=== PATIENT | female | born 1985 | race American Indian/Alaskan Native ===

== ENCOUNTER 2018-05-16 12:24 | Inpatient (IN) | payer MEDICAID ==
[2018-05-16] MEDS ORDERED: MYLICON PO PRN (12:56)
[2018-05-16] MEDS ORDERED: SENOKOT S PO PRN (12:56)
[2018-05-16] MEDS ORDERED: COLACE PO PRN (12:56)
[2018-05-16] MEDS ORDERED: ZOFRAN IV PRN (12:56)
[2018-05-16] MEDS ORDERED: D5LR 1,000 ML IV SCH (13:00)
[2018-05-16] MEDS ORDERED: MAGNESIUM SULFATE 4GM/100ML 4 GM/100 ML BAG IV ONE (13:09)
--- NOTE | 2018-05-16 13:16 | History and Physical Report ---
History of Present Illness Date of examination: 05/16/18 Date of admission: 05/16/18 12:43 Chief complaint: Ruptured membranes at 27 weeks History of present illness: 32-year-old 032 at 27 weeks with Di Di twins, she is a [facility] patient. Essential history, patient with Di Di twins being managed by a [facility] and [facility]. course complicated by suspected IUGR of twin A, she has a history of GDM with her prior results negative for this . Was seen in the hospital on Tuesday with question of rupture, ruled out for rupture by CNM and sent home. Patient returned to clinic today with c/o gross rupture, was examined and ROM confirmed per clinic CNM (December). She is sent here for further care. She has no fever or chills, no vaginal discharge or VB, no abdominal tenderness +FM Past History Past Medical History: no pertinent history Past Surgical History: HELP DESK MANAGER/uterine surgery (status post salpingectomy for ectopic ?laparoscopic) HELP DESK MANAGER History: denies: chlamydia, gonorrhea, hepatitis B, hepatitis C, herpes, HIV , syphilis, trichomonas Social history: single, full code. denies: Lives alone, lives with family, smoking, alcohol abuse, prescription drug abuse - Obstetrical History Expected Date of Delivery: 08/15/18 Actual Gestation: 27 Week(s) 0 Day(s) : 6 Para: 2 Medications and Allergies Allergies Allergy/AdvReac Type Severity Reaction Status Date / Time aspirin Allergy Vomiting Verified 06/11/14 08:12 Home Medications Medication Instructions Recorded Confirmed Last Taken Type No Known Home Medications [No 05/13/18 05/13/18 Unknown History Reported Home Medications] Active Meds: Active Medications Acetaminophen (Tylenol) 650 mg PO Q4H PRN PRN Reason: Pain MILD(1-3)/Fever >100.5/ORTEGA Amoxicillin (Trimox) 250 mg PO Q8HR ARNOL; Protocol Stop: 05/23/18 13:04 Betamethasone Acet/Betameth SodPhos (Celestone Soluspan) 12 mg IM Q24HR ARNOL Stop: 05/17/18 10:01 Docusate Sodium (Colace) 100 mg PO Q12H PRN PRN Reason: Constipation Guaifenesin (Guaifenesin Dm Syrup) 10 ml PO Q6H PRN PRN Reason: Cough Ampicillin Sodium (Polycillin/Ns 2 Gm/100 Ml) 2 gm in 100 mls @ 100 mls/hr IV Q6HR [facility]; Protocol Stop: 05/18/18 06:59 Dextrose/Lactated Ringer's (D5lr) 1,000 mls @ 125 mls/hr IV DIRECT ARNOL Multivitamins/Iron/Calcium ( Vitamin) 1 each PO QDAY ARNOL Ondansetron HCl (Zofran) 4 mg IV Q6H PRN PRN Reason: Nausea And Vomiting Senna/Docusate Sodium (Senokot S) 2 tab PO Q12H PRN PRN Reason: Laxative Effect Simethicone (Mylicon) 80 mg PO Q6H PRN PRN Reason: Gas pain Review of Systems Constitutional: no fever, no chills, no weakness, no malaise Cardiovascular: no chest pain, no syncope, no lightheadedness, no shortness of breath, no dyspnea on exertion, no paroxysmal nocturnal dyspnea Respiratory: no cough, no cough with sputum, no shortness of breath, no dyspnea on exertion Gastrointestinal: no abdominal pain, no nausea, no vomiting Genitourinary: leakage of fluid, no vaginal bleeding, no vaginal discharge, no contractions - Physical Exam Cardiovascular: Regular rate, Normal S1, Normal S2 Lungs: Positive: Clear to auscultation, Normal air movement Abdomen: Positive: normal appearance, soft. Negative: distention, tenderness, guarding, rigidity Uterus: Positive: enlarged. Negative: tender Extremities: Positive: normal Results All other labs normal. Assessment and Plan A: 32-year-old at 27 weeks Di Di Twins with ruptured membranes -No contractions P: -Admit -Start latency antibiotics -Start magnesium per protocol -Celestone course -Growth and BPP -MFM consultation -Expectant management - Patient Problems (1) 27 weeks gestation of Current Visit: Yes Status: Acute (2) Dichorionic diamniotic twin in third trimester Current Visit: Yes Status: Acute (3) premature rupture of membranes (PPROM) with unknown onset of labor Current Visit: Yes Status: Acute
[2018-05-16 13:48] LABS: Hematocrit 28.7 % (30.3-42.9); Hemoglobin 9.4 gm/dl (10.1-14.3); Mean Corpuscular HGB Conc 33 % (30-34); Mean Corpuscular Hemoglobin 26 pg (28-32); Mean Corpuscular Volume 81 fl (79-97); Platelet Count 224 K/mm3 (140-440); Red Blood Count 3.56 M/mm3 (3.65-5.03); Red Cell Distribution Width 14.7 % (13.2-15.2)
[2018-05-16 14:27] LABS: BUN/Creatinine Ratio 8; Blood Urea Nitrogen 3 mg/dL (7-17); Calcium 8.8 mg/dL (8.4-10.2); Hemolysis Index 5
[2018-05-16 14:32] LABS: Band Neutrophils # (Manual) 0.4 K/mm3; Basophils % (Manual) 0 % (0.0-1.8); Total Cells Counted 100
[2018-05-16 14:33] LABS: RBC Morphology Normal
[2018-05-16] MEDS: LACTATED RINGERS 1,000 ML IV SCH (15:01)
[2018-05-16] MEDS: POLYCILLIN/NS 2 GM/100 ML 2 GM/100 ML BAG IV SCH ×2 (15:03→21:41)
[2018-05-16] MEDS: CELESTONE SOLUSPAN IM SCH (15:45)
[2018-05-16] MEDS: MAGNESIUM SULFATE 40GM/1000ML 40 GM/1,000 ML BAG IV SCH (15:51)
--- NOTE | 2018-05-16 16:38 | Ultrasound Report ---
FINAL REPORT EXAM: US OB BPP EA ADD EXAM HISTORY: 27 WK TWINS; PROM TECHNIQUE: Biophysical profile obstetrical ultrasound of TWIN B PRIORS: None. FINDINGS: LMP 11/08/2017 clinical Age: 27 w 0 d LMP EDC 08/15/2018 TWIN B Biophysical profile scoring 2 movement 2 tone 2 breathing 2 fluid 8/8 overall score Presentation: Transverse with the head to the maternal right Activity: Monitored Cardiac motion: 138 BPM using M-mode doppler Amniotic Fluid Volume: Adequate IMPRESSION: Twin intrauterine viable with an approximate age of 27 weeks 0 days. Twin B: Biophysical profile score is 8/8
[2018-05-16] MEDS ORDERED: INDOCIN PO ONE (17:23)
--- NOTE | 2018-05-16 17:33 | Event Note ---
Date: 05/16/18 Called and notified that patient having contractions and worried. Saw patient and her partner, she is uncomfortable with her contractions. Performed a vaginal exam, she is still ~ 4 cm and -4 station. She is on Mag per protocol. Plan is to add Indomethacin 50mg loading then 25 mg Q 6H. Discussed delivery of baby A vaginally then baby B by if unable to convert to cephalic presentation.
--- NOTE | 2018-05-16 20:53 | Consultation ---
History of Present Illness Consult date: 05/16/18 Requesting physician: SAVANA CONWAY Reason for consult: prematurity (PROM of di di 27 week gestation twin Mother) [place] Documentation - Maternal Info Events: Premature Rupture Membrane Maternal Blood Type: O (+) positive RPR/VDRL: Non-reactive Rubella: Immune Amniotic Membrane Rupture Date: 05/16/18 Amniotic Membrane Rupture Time: 15:40 (unknown exact time) - information: Height 5 ft 6 in Medications and Allergies Allergies Allergy/AdvReac Type Severity Reaction Status Date / Time aspirin Allergy Vomiting Verified 06/11/14 08:12 Home Medications Medication Instructions Recorded Confirmed Last Taken Type No Known Home Medications [No 05/13/18 05/13/18 Unknown History Reported Home Medications] Active Meds: Active Medications Acetaminophen (Tylenol) 650 mg PO Q4H PRN PRN Reason: Pain MILD(1-3)/Fever >100.5/ORTEGA Amoxicillin (Trimox) 250 mg PO Q8HR ARNOL; Protocol Stop: 05/23/18 13:04 Betamethasone Acet/Betameth SodPhos (Celestone Soluspan) 12 mg IM Q24HR ARNOL Stop: 05/17/18 10:01 Last Admin: 05/16/18 15:45 Dose: 12 mg Docusate Sodium (Colace) 100 mg PO Q12H PRN PRN Reason: Constipation Guaifenesin (Guaifenesin Dm Syrup) 10 ml PO Q6H PRN PRN Reason: Cough Ampicillin Sodium (Polycillin/Ns 2 Gm/100 Ml) 2 gm in 100 mls @ 100 mls/hr IV Q6HR ARNOL; Protocol Stop: 05/18/18 06:59 Last Admin: 05/16/18 15:03 Dose: 100 mls/hr Dextrose/Lactated Ringer's (D5lr) 1,000 mls @ 125 mls/hr IV DIRECT ARNOL Lactated Ringer's (Lactated Ringers) 1,000 mls @ 125 mls/hr IV DIRECT ARNOL Last Admin: 05/16/18 15:01 Dose: 125 mls/hr Magnesium Sulfate (Magnesium Sulfate 40gm/1000ml) 40 gm in 1,000 mls @ 50 mls/ hr IV DIRECT ARNOL Last Admin: 05/16/18 15:51 Dose: 2 gm/hr, 50 mls/hr Indomethacin (Indocin) 25 mg PO Q6H ARNOL Stop: 05/18/18 19:59 Multivitamins/Iron/Calcium ( Vitamin) 1 each PO QDAY ARNOL Ondansetron HCl (Zofran) 4 mg IV Q6H PRN PRN Reason: Nausea And Vomiting Senna/Docusate Sodium (Senokot S) 2 tab PO Q12H PRN PRN Reason: Laxative Effect Simethicone (Mylicon) 80 mg PO Q6H PRN PRN Reason: Gas pain Exam Vital Signs Temp Pulse Resp BP Pulse Ox 99.0 F 110 H 16 118/62 95 05/16/18 13:14 05/16/18 13:14 05/16/18 13:14 05/16/18 13:14 05/16/18 13:14 Temp Pulse Resp BP Pulse Ox 99.3 F 107 H 16 124/74 98 05/16/18 16:46 05/16/18 20:40 05/16/18 13:14 05/16/18 20:40 05/16/18 20:30 Results - Laboratory Findings 05/16/18 13:31 05/16/18 13:31 Abnormal lab results 05/16/18 05/16/18 Range/Units 13:31 13:31 RBC 3.56 L (3.65-5.03) M/mm3 Hgb 9.4 L (10.1-14.3) gm/dl Hct 28.7 L (30.3-42.9) % MCH 26 L (28-32) pg Seg Neuts % (Manual) 75.0 H (40.0-70.0) % Sodium 134 L (137-145) mmol/L Potassium 3.4 L (3.6-5.0) mmol/L Carbon Dioxide 20 L (22-30) mmol/L BUN 3 L (7-17) mg/dL Creatinine 0.4 L (0.7-1.2) mg/dL Glucose 161 H (65-100) mg/dL Assessment and Plan Mother antepartum with di-di twins, currently on MgSO4 drip and antibiotics. Received first dose of Betamethasone this afternoon. Discussed with Mother and FOBs common medical issues of newborns born prior to 32 weeks. Discussed CPAP and possibility of surfactant administration as well as intubation. Discussed need for IV access via UAC/UVC for fluid administration/ nutrition. Mother desires to breastfeed. Discussed slow administration of feedings and reasons for slow advancment, discussed need for CUS @ 7 days of age as well as f/u when and why it would be needed as well as eye eaxams @30 days of age and when and why f/u exams will be needed. Finally, discussed means of thermoregulation and procress to weaning from isolette to open crib. Discussed extended hospital stay while newborns gain weight, mature and improve respiratory status. Parents questions answered and they voiced understanding. Parents appropiate in their level of concern for their future newborns.
--- NOTE | 2018-05-16 21:32 | Ultrasound Report ---
FINAL REPORT EXAM: US OB BPP WO NON-STRESS HISTORY: 27 wk twins with PPROM TECHNIQUE: Biophysical profile obstetrical ultrasound for TWIN A PRIORS: None. FINDINGS: clinical Age: 27 w 0 d TWIN A Biophysical profile scoring 2 movement 2 tone 2 breathing 0 fluid 6/8 overall score Cardiac motion: 158 BPM using M-mode doppler Amniotic Fluid Volume: Decreased Largest Pocket amniotic fluid volume: 1.3 cm IMPRESSION: Twin intrauterine viable with an approximate age of 27 weeks 0 days. TWIN A biophysical profile score is 6/8. Decreased amniotic fluid volume.
--- NOTE | 2018-05-16 21:45 | Ultrasound Report ---
FINAL REPORT EXAM: US OB FOLLOW UP HISTORY: Di Di twinspls obtain growth TECHNIQUE: Limited obstetrical ultrasound for TWIN A PRIORS: None. FINDINGS: LMP: 11/08/2017 clinical Age: 27 w 0 d US Age (average) = 26 w 5 d EFW (BPD,HC,AC,FL) = 949 g +/- 140 g (2 lbs 1 oz. +/- 5 oz.) LMP EDC 08/15/2018 US EDC 08/17/2018 CI 81.2 (range 74 to 83.0) HC/AC 1.14 (range 1.05 to 1.22) FL/BPD 76.6 (range 70.4 to 86.4) FL/HC 20.5 (range 16.8 To 22.2) FL/AC 23.4 (range 20.0 to 24.0) BPD 6.59 cm corresponding to estimated age 26 weeks 4 days HC 24.6 cm corresponding to estimated age 26 weeks 5 days AC 21.6 cm corresponding to estimated age 26 weeks 1 day FL 5.1 cm corresponding to estimated age 27 weeks 1 day Presentation: Cephalic Activity: Monitored Cardiac motion: 144 BPM using M-mode doppler Amniotic Fluid Volume: Decreased largest vertical pocket of amniotic Fluid: 1.3 cm (2-8 cm normal) IMPRESSION: Twin intrauterine viable with an approximate age of 26 weeks 5 days. Amniotic fluid volume is decreased for TWIN A.
--- NOTE | 2018-05-16 21:52 | Ultrasound Report ---
FINAL REPORT EXAM: US OB FOLLOWUP EA ADD GESTAT HISTORY: Obtain JOHN TECHNIQUE: limited obstetrical ultrasound for TWIN B PRIORS: None. FINDINGS: LMP: 11/08/2017 clinical age: 27 w 0 d US Age (average) = 26 w 4 d EFW (BPD,HC,AC,FL) = 953 g +/- 141g (2 lbs 2 oz. +/- 5 oz.) LMP EDC 08/15/2018 US EDC 08/18/2018 CI 83.8 (range 74 to 83) HC/AC 1.09 (range 1.05 to 1.22) FL/BPD 72.6 (range 70.4 to 86.4) FL/HC 19.8 (range 16.8 to 22.2) FL/AC 21.6 (range 20 to 24) BPD 6.7 cm corresponding to estimated age 26 weeks 6 days HC 24.4 cm corresponding to estimated age 26 weeks 3 days AC 22.4 cm corresponding to estimated age 26 weeks 6 days FL 4.8 cm corresponding to estimated age 26 weeks 1 day Presentation: Transverse with the head to the maternal right Activity: Monitored Cardiac motion: 138 BPM using M-mode doppler Amniotic Fluid Volume: Adequate Amniotic fluid single largest vertical pocket 4.4 cm (2-8 cm normal) IMPRESSION: Twin intrauterine viable with an approximate age of 26 weeks 4 days. Findings are for TWIN B. Amniotic fluid volume is normal for twin B.
[2018-05-17] MEDS: INDOCIN PO SCH ×4 (01:09→19:41)
[2018-05-17] MEDS: TYLENOL PO PRN ×3 (02:53→19:49)
[2018-05-17] MEDS: POLYCILLIN/NS 2 GM/100 ML 2 GM/100 ML BAG IV SCH ×4 (03:07→19:40)
[2018-05-17] MEDS ORDERED: ZITHROMAX PO ONE (05:10)
--- NOTE | 2018-05-17 06:12 | Event Note ---
Date: 05/17/18 Called and notified patient having intermittent decels with latish component. On reviewing the chart, patient currently not having latish decels. Still having intermittent decels. Patient no fever or chills. No VB +FM +LOF. Contractions have reduced in frequency, was previoulsy 09/12. ABD exam shows no tenderness Sterile speculum exam shows cervix still ~ 3-4 cm, no cord or caput noted. Plan is BPP now
--- NOTE | 2018-05-17 07:08 | Ultrasound Report ---
FINAL REPORT EXAM: US OB LIMITED HISTORY: position twins TECHNIQUE: A limited OB sonogram was obtained for evaluation of the position of the twin . FINDINGS: Baby a is in cephalic presentation with the heart rate of 139 BPM. The largest amniotic fluid pocket is 3.1 cm. Baby B is in breech presentation. The heart is 147 BPM. The largest amniotic fluid pocket is 5.1 cm which is normal. IMPRESSION: Twin , baby a is in cephalic presentation with baby B in breech presentation.
--- NOTE | 2018-05-17 07:10 | Ultrasound Report ---
FINAL REPORT EXAM: US OB BPP EA ADD EXAM HISTORY: labor, srom TECHNIQUE: A limited OB sonogram was obtained for biophysical profile of baby a: FINDINGS: For breathing movements, a score of 2 out of 2 was obtained. For movements, a score of 2 out of 2 was obtained. For posture in tone, a score of 2 out of 2 was obtained. For qualitative amniotic fluid volume, a score of 2 out of 2 was obtained. The heart rate is 139 BPM. IMPRESSION: Biophysical profile score of 8 out of 8 for baby a. the heart rate is 139 BPM.
--- NOTE | 2018-05-17 09:31 | Progress Note ---
Assessment and Plan - Patient Problems (1) 27 weeks gestation of Current Visit: Yes Status: Acute (2) Dichorionic diamniotic twin in third trimester Current Visit: Yes Status: Acute (3) premature rupture of membranes (PPROM) with unknown onset of labor Current Visit: Yes Status: Acute Plan to address problem: Continue current management. Awaiting APA consult. Continous and toco monitoring. (4) Anemia Current Visit: Yes Status: Acute Qualifiers: Anemia type: iron deficiency Subjective - Subjective Date of service: 05/17/18 Principal diagnosis: Twins gestation at 27 weeks with PPOM Interval history: Patient is a 32 year old , LMP 11/08/17, EDC 08/15/18 at 27 weeks and 1 day gestation who was admitted yesterday after she went to the office for a routine visit. She reported that she had been leaking fluids for 4 days. She denied any contractions or bleeding. She did not go to the hospital to get checked. On exam in the office, there was pooling of clear fluid, cervix was 3-4 cm dilated. She was sent in for admission. tracing was CAT1, toco showed no contractions. She was given magnesium sulfate for tocolysis and neuroprotection, Celestone for FLM, IV antibiotics prophylaxis. Bedside sonogram showed baby A to be VTX, EFW 949 gms, normal JOHN and baby B to be breech, EFW 953 gms, normal JOHN. BPP was 8/8 for both babies. NICU consult was done. APA consult was called. This AM, she denies any complaint. Objective - Vital Signs Vital Signs: Vital Signs - 12hr 05/16/18 05/16/18 05/16/18 21:45 22:46 22:57 Temperature Pulse Rate 94 H 93 H 108 H Respiratory Rate Blood Pressure 119/56 100/60 Blood Pressure [Right] O2 Sat by Pulse 94 Oximetry 05/16/18 05/16/18 05/16/18 22:58 23:03 23:08 Temperature Pulse Rate 98 H 97 H 95 H Respiratory Rate Blood Pressure Blood Pressure [Right] O2 Sat by Pulse 97 100 99 Oximetry 05/16/18 05/16/18 05/16/18 23:13 23:18 23:23 Temperature Pulse Rate 103 H 103 H 106 H Respiratory Rate Blood Pressure Blood Pressure [Right] O2 Sat by Pulse 100 100 100 Oximetry 05/16/18 05/16/18 05/16/18 23:28 23:33 23:38 Temperature Pulse Rate 103 H 99 H 107 H Respiratory Rate Blood Pressure Blood Pressure [Right] O2 Sat by Pulse 96 97 98 Oximetry 05/16/18 05/16/18 05/16/18 23:44 23:45 23:49 Temperature 98.8 F Pulse Rate 98 H 96 H 98 H Respiratory 18 Rate Blood Pressure 122/54 Blood Pressure 122/54 [Right] O2 Sat by Pulse 80 L 96 Oximetry 05/17/18 05/17/18 05/17/18 01:45 04:45 07:45 Temperature 98.0 F 97.8 F Pulse Rate 85 100 H Respiratory 18 Rate Blood Pressure 110/60 Blood Pressure 110/56 [Right] O2 Sat by Pulse Oximetry 05/17/18 05/17/18 05/17/18 08:06 08:07 08:12 Temperature Pulse Rate 59 L 49 L 95 H Respiratory Rate Blood Pressure Blood Pressure [Right] O2 Sat by Pulse 93 96 98 Oximetry 05/17/18 05/17/18 05/17/18 08:17 08:22 08:27 Temperature Pulse Rate 95 H 90 91 H Respiratory Rate Blood Pressure Blood Pressure [Right] O2 Sat by Pulse 98 97 97 Oximetry 05/17/18 05/17/18 05/17/18 08:32 08:37 08:42 Temperature Pulse Rate 94 H 105 H 90 Respiratory Rate Blood Pressure Blood Pressure [Right] O2 Sat by Pulse 96 98 97 Oximetry 05/17/18 05/17/18 05/17/18 08:43 08:45 08:47 Temperature Pulse Rate 91 H 90 100 H Respiratory Rate Blood Pressure 107/68 Blood Pressure [Right] O2 Sat by Pulse 94 97 Oximetry 05/17/18 05/17/18 05/17/18 08:52 08:57 09:02 Temperature Pulse Rate 99 H 91 H 101 H Respiratory Rate Blood Pressure Blood Pressure [Right] O2 Sat by Pulse 96 98 98 Oximetry 05/17/18 05/17/18 05/17/18 09:07 09:12 09:17 Temperature Pulse Rate 90 97 H 89 Respiratory Rate Blood Pressure Blood Pressure [Right] O2 Sat by Pulse 99 100 100 Oximetry 05/17/18 09:22 Temperature Pulse Rate 94 H Respiratory Rate Blood Pressure Blood Pressure [Right] O2 Sat by Pulse 100 Oximetry - Exam Cardiovascular: Normal S1, Normal S2 Lungs: Clear to auscultation Vulva: both: normal FHR: category 1 Uterine Contraction Monitor Mode: External Cervical Dilatation: 3 Cervical Effacement Percentage: 50 Uterine Contraction Pattern: Absent Deep Tendon Reflex Grade: Normal +2 - Labs Labs: Abnormal Labs 05/16/18 05/16/18 05/16/18 13:31 13:31 21:41 RBC 3.56 L Hgb 9.4 L Hct 28.7 L MCH 26 L Seg Neuts % (Manual) 75.0 H Sodium 134 L Potassium 3.4 L Carbon Dioxide 20 L BUN 3 L Creatinine 0.4 L Glucose 161 H Magnesium 4.30 H 05/17/18 02:34 RBC Hgb Hct MCH Seg Neuts % (Manual) Sodium Potassium Carbon Dioxide BUN Creatinine Glucose Magnesium 2.90 H Laboratory Results - last 24 hr 05/16/18 05/16/18 05/16/18 13:31 13:31 13:31 WBC 9.2 RBC 3.56 L Hgb 9.4 L Hct 28.7 L MCV 81 MCH 26 L MCHC 33 RDW 14.7 Plt Count 224 Add Manual Diff Complete Total Counted 100 Seg Neuts % (Manual) 75.0 H Band Neutrophils % 4.0 Lymphocytes % (Manual) 17.0 Reactive Lymphs % (Man) 0 Monocytes % (Manual) 1.0 Eosinophils % (Manual) 2.0 Basophils % (Manual) 0 Metamyelocytes % 1.0 Myelocytes % 0 Promyelocytes % 0 Blast Cells % 0 Nucleated RBC % Not Reportable Seg Neutrophils # Man 6.9 Band Neutrophils # 0.4 Lymphocytes # (Manual) 1.6 Abs React Lymphs (Man) 0.0 Monocytes # (Manual) 0.1 Eosinophils # (Manual) 0.2 Basophils # (Manual) 0.0 Metamyelocytes # 0.1 Myelocytes # 0.0 Promyelocytes # 0.0 Blast Cells # 0.0 WBC Morphology Not Reportable Hypersegmented Neuts Not Reportable Hyposegmented Neuts Not Reportable Hypogranular Neuts Not Reportable Smudge Cells Not Reportable Toxic Granulation Not Reportable Toxic Vacuolation Not Reportable Dohle Bodies Not Reportable Pelger-Huet Anomaly Not Reportable Pillo Rods Not Reportable Platelet Estimate Appears normal Clumped Platelets Not Reportable Plt Clumps, EDTA Not Reportable Large Platelets Not Reportable Giant Platelets Not Reportable Platelet Satelliting Not Reportable Plt Morphology Comment Not Reportable RBC Morphology Normal Dimorphic RBCs Not Reportable Polychromasia Not Reportable Hypochromasia Not Reportable Poikilocytosis Not Reportable Anisocytosis Not Reportable Microcytosis Not Reportable Macrocytosis Not Reportable Spherocytes Not Reportable Pappenheimer Bodies Not Reportable Sickle Cells Not Reportable Target Cells Not Reportable Tear Drop Cells Not Reportable Ovalocytes Not Reportable Helmet Cells Not Reportable [place] Bodies Not Reportable [place] Rings Not Reportable [place] Cells Not Reportable Bite Cells Not Reportable Crenated Cell Not Reportable Elliptocytes Not Reportable Acanthocytes (Spur) Not Reportable Rouleaux Not Reportable Hemoglobin C Crystals Not Reportable Schistocytes Not Reportable Malaria parasites Not Reportable Jl Bodies Not Reportable Hem Pathologist Commnt No Sodium 134 L Potassium 3.4 L Chloride 101.5 Carbon Dioxide 20 L Anion Gap 16 BUN 3 L Creatinine 0.4 L Estimated GFR > 60 BUN/Creatinine Ratio 8 Glucose 161 H Calcium 8.8 Magnesium Blood Type O POSITIVE Antibody Screen Negative 05/16/18 05/17/18 21:41 02:34 WBC RBC Hgb Hct MCV MCH MCHC RDW Plt Count Add Manual Diff Total Counted Seg Neuts % (Manual) Band Neutrophils % Lymphocytes % (Manual) Reactive Lymphs % (Man) Monocytes % (Manual) Eosinophils % (Manual) Basophils % (Manual) Metamyelocytes % Myelocytes % Promyelocytes % Blast Cells % Nucleated RBC % Seg Neutrophils # Man Band Neutrophils # Lymphocytes # (Manual) Abs React Lymphs (Man) Monocytes # (Manual) Eosinophils # (Manual) Basophils # (Manual) Metamyelocytes # Myelocytes # Promyelocytes # Blast Cells # WBC Morphology Hypersegmented Neuts Hyposegmented Neuts Hypogranular Neuts Smudge Cells Toxic Granulation Toxic Vacuolation Dohle Bodies Pelger-Huet Anomaly [place]illo Rods Platelet Estimate Clumped Platelets Plt Clumps, EDTA Large Platelets Giant Platelets Platelet Satelliting Plt Morphology Comment RBC Morphology Dimorphic RBCs Polychromasia Hypochromasia Poikilocytosis Anisocytosis Microcytosis Macrocytosis Spherocytes Pappenheimer Bodies Sickle Cells Target Cells Tear Drop Cells Ovalocytes Helmet Cells [place] Bodies [place] Cells Bite Cells Crenated Cell Elliptocytes Acanthocytes (Spur) Rouleaux Hemoglobin C Crystals Schistocytes Malaria parasites Jl Bodies Hem Pathologist Commnt Sodium Potassium Chloride Carbon Dioxide Anion Gap BUN Creatinine Estimated GFR BUN/Creatinine Ratio Glucose Calcium Magnesium 4.30 H 2.90 H Blood Type Antibody Screen - Results US- obstetric: report reviewed
[2018-05-17] MEDS: PRENATAL VITAMIN PO SCH (10:07)
--- NOTE | 2018-05-17 10:21 | Ultrasound Report ---
FINAL REPORT EXAM: US OB BPP WO NON-STRESS HISTORY: labor, srom COMPARISON: Biophysical profile performed on 05/16/2018 TECHNIQUE: Limited obstetric ultrasound was performed for biophysical profile of baby a FINDINGS: Biophysical profile: breathin movement: 2 posterior and tone: 2 Amniotic Fluid: 2 Total score: 8 heart rate: 139 IMPRESSION: Normal biophysical profile.
--- NOTE | 2018-05-17 14:24 | Event Note ---
Date: 05/17/18 Patient was admitted yesterday at 27 weeks and 1 days for PPROM with Di/Di twins gestation. She is on Magnesium sulfate, IV antibiotics, and celestone first dose was given last night. She denies any contractions or bleeding. GCT was done yesterday and was 211 consistent with showed gestational diabetes. Patient was made aware. Will put patient on ADA diet, initiate FS and sliding scale.
[2018-05-17] MEDS: CELESTONE SOLUSPAN IM SCH (15:48)
[2018-05-17] MEDS: MAGNESIUM SULFATE 40GM/1000ML 40 GM/1,000 ML BAG IV SCH (16:56)
[2018-05-17] MEDS: LACTATED RINGERS 1,000 ML IV SCH (16:57)
[2018-05-17] MEDS ORDERED: D50W (25GM) Syringe IV PRN (19:58)
[2018-05-17] MEDS ORDERED: HumuLIN R SUB-Q SCH (22:00)
[2018-05-18] MEDS: POLYCILLIN/NS 2 GM/100 ML 2 GM/100 ML BAG IV SCH ×2 (01:03→07:48)
[2018-05-18] MEDS: INDOCIN PO SCH ×4 (01:05→20:05)
--- NOTE | 2018-05-18 07:07 | Ultrasound Report ---
FINAL REPORT EXAM: US OB LIMITED HISTORY: unable to detect twin B FHT TECHNIQUE: A limited OB sonogram was obtained for evaluation of the heart rates of both twins. FINDINGS: For twin a which is in cephalic presentation, the heart rate is 147 BPM. For twin B which is in breech presentation the heart rate is 145 BPM. IMPRESSION: Twin a: heart rate 147 BPM. Twin B: heart rate 145 BPM.
[2018-05-18] MEDS: LACTATED RINGERS 1,000 ML IV SCH ×2 (07:50→22:24)
[2018-05-18] MEDS: TYLENOL PO PRN (08:17)
--- NOTE | 2018-05-18 09:17 | Progress Note ---
Assessment and Plan - Patient Problems (1) 27 weeks gestation of Current Visit: Yes Status: Acute (2) Dichorionic diamniotic twin in third trimester Current Visit: Yes Status: Acute (3) premature rupture of membranes (PPROM) with unknown onset of labor Current Visit: Yes Status: Acute Plan to address problem: Continue current management. Monitor Mg levels. CBC today, then Q48 hrs. BPP today. Awaiting [facility] consult. Continous and toco monitoring. (4) Anemia Current Visit: Yes Status: Acute Qualifiers: Anemia type: iron deficiency Subjective - Subjective Principal diagnosis: Twins gestation at 27 weeks with PPOM Interval history: Patient is a 32 year old , LMP 11/08/17, EDC 08/15/18 at 27 weeks and 2 days gestation who was admitted 2 days ago after she went to the office for a routine visit. She reported that she had been leaking fluids for 4 days. She denied any contractions or bleeding. She did not go to the hospital to get checked. On exam in the office, there was pooling of clear fluid, cervix was 3-4 cm dilated. She was sent in for admission. tracing was CAT1, toco showed no contractions. She is on magnesium sulfate for tocolysis and neuroprotection, Celestone for FLM, IV antibiotics prophylaxis. Bedside sonogram showed baby A to be VTX, EFW 949 gms, normal JOHN and baby B to be breech, EFW 953 gms, normal JOHN. BPP was 8/8 for both babies. NICU consult was done. [facility] consult was called. This AM, she denies any complaint. Objective - Vital Signs Vital Signs: Vital Signs - 12hr 05/17/18 05/17/18 05/17/18 21:15 21:20 21:25 Temperature Pulse Rate 93 H 89 94 H Blood Pressure O2 Sat by Pulse 98 98 98 Oximetry 05/17/18 05/17/18 05/17/18 21:30 21:35 21:40 Temperature Pulse Rate 90 94 H 92 H Blood Pressure O2 Sat by Pulse 99 98 96 Oximetry 05/17/18 05/17/18 05/17/18 21:45 21:46 21:50 Temperature Pulse Rate 93 H 98 H 97 H Blood Pressure 115/64 O2 Sat by Pulse 96 96 Oximetry 05/17/18 05/17/18 05/17/18 21:55 22:00 22:02 Temperature Pulse Rate 96 H 98 H 96 H Blood Pressure O2 Sat by Pulse 96 95 94 Oximetry 05/17/18 05/17/18 05/17/18 22:05 22:10 22:15 Temperature 98.6 F Pulse Rate 95 H 98 H 90 Blood Pressure O2 Sat by Pulse 96 94 97 Oximetry 05/17/18 05/17/18 05/17/18 22:20 22:25 22:30 Temperature Pulse Rate 95 H 96 H 97 H Blood Pressure O2 Sat by Pulse 96 96 96 Oximetry 05/17/18 05/17/18 05/17/18 22:35 22:40 22:45 Temperature Pulse Rate 96 H 100 H 93 H Blood Pressure 95/52 O2 Sat by Pulse 96 96 95 Oximetry 05/17/18 05/17/18 05/17/18 22:48 22:50 22:55 Temperature Pulse Rate 92 H 96 H 98 H Blood Pressure O2 Sat by Pulse 94 96 96 Oximetry 05/17/18 05/17/18 05/17/18 23:00 23:05 23:06 Temperature Pulse Rate 97 H 99 H 95 H Blood Pressure O2 Sat by Pulse 96 96 93 Oximetry 05/17/18 05/17/18 05/17/18 23:10 23:14 23:15 Temperature Pulse Rate 99 H 98 H 99 H Blood Pressure O2 Sat by Pulse 95 93 97 Oximetry 05/17/18 05/17/18 05/17/18 23:20 23:25 23:30 Temperature Pulse Rate 98 H 98 H 96 H Blood Pressure O2 Sat by Pulse 96 96 96 Oximetry 05/17/18 05/17/18 05/17/18 23:35 23:40 23:41 Temperature 96.8 F L Pulse Rate 101 H 110 H Blood Pressure O2 Sat by Pulse 96 98 Oximetry 05/17/18 05/17/18 05/17/18 23:45 23:50 23:55 Temperature Pulse Rate 95 H 106 H 94 H Blood Pressure 117/56 O2 Sat by Pulse 98 97 97 Oximetry 05/18/18 05/18/18 05/18/18 00:00 00:05 00:10 Temperature Pulse Rate 92 H 99 H 93 H Blood Pressure O2 Sat by Pulse 97 96 98 Oximetry 05/18/18 05/18/18 05/18/18 00:15 00:20 00:25 Temperature Pulse Rate 92 H 98 H 96 H Blood Pressure O2 Sat by Pulse 97 98 97 Oximetry 05/18/18 05/18/18 05/18/18 00:30 00:35 00:40 Temperature Pulse Rate 91 H 96 H 101 H Blood Pressure O2 Sat by Pulse 98 98 98 Oximetry 05/18/18 05/18/18 05/18/18 00:45 00:50 00:55 Temperature Pulse Rate 98 H 96 H 98 H Blood Pressure O2 Sat by Pulse 98 97 97 Oximetry 05/18/18 05/18/18 05/18/18 01:00 01:05 01:10 Temperature Pulse Rate 99 H 93 H 115 H Blood Pressure O2 Sat by Pulse 96 97 99 Oximetry 05/18/18 05/18/18 05/18/18 01:15 01:20 01:25 Temperature Pulse Rate 111 H 87 86 Blood Pressure O2 Sat by Pulse 100 100 97 Oximetry 05/18/18 05/18/18 05/18/18 01:30 01:35 01:40 Temperature Pulse Rate 109 H 85 85 Blood Pressure O2 Sat by Pulse 96 99 100 Oximetry 05/18/18 05/18/18 05/18/18 01:45 01:50 01:55 Temperature Pulse Rate 90 88 88 Blood Pressure O2 Sat by Pulse 97 96 97 Oximetry 05/18/18 05/18/18 05/18/18 02:00 02:05 02:10 Temperature Pulse Rate 88 91 H 94 H Blood Pressure O2 Sat by Pulse 97 96 96 Oximetry 05/18/18 05/18/18 05/18/18 02:15 02:17 02:20 Temperature 98.2 F Pulse Rate 91 H 97 H Blood Pressure O2 Sat by Pulse 97 97 Oximetry 05/18/18 05/18/18 05/18/18 02:25 02:30 02:35 Temperature Pulse Rate 93 H 99 H 94 H Blood Pressure O2 Sat by Pulse 97 96 96 Oximetry 05/18/18 05/18/18 05/18/18 02:40 02:45 02:50 Temperature Pulse Rate 96 H 97 H 105 H Blood Pressure O2 Sat by Pulse 96 96 96 Oximetry 05/18/18 05/18/18 05/18/18 02:55 03:00 03:05 Temperature Pulse Rate 98 H 94 H 105 H Blood Pressure O2 Sat by Pulse 97 94 97 Oximetry 05/18/18 05/18/18 05/18/18 03:10 03:15 03:20 Temperature Pulse Rate 94 H 97 H 124 H Blood Pressure O2 Sat by Pulse 97 95 98 Oximetry 05/18/18 05/18/18 05/18/18 03:25 03:30 03:35 Temperature Pulse Rate 101 H 92 H 95 H Blood Pressure O2 Sat by Pulse 98 97 97 Oximetry 05/18/18 05/18/18 05/18/18 03:40 03:45 03:50 Temperature Pulse Rate 98 H 95 H 100 H Blood Pressure O2 Sat by Pulse 97 97 97 Oximetry 05/18/18 05/18/18 05/18/18 03:52 03:55 04:00 Temperature 97.9 F Pulse Rate 90 93 H 104 H Blood Pressure 111/63 O2 Sat by Pulse 95 96 Oximetry 05/18/18 05/18/18 05/18/18 04:05 04:10 04:15 Temperature Pulse Rate 93 H 89 94 H Blood Pressure O2 Sat by Pulse 99 96 97 Oximetry 05/18/18 05/18/18 05/18/18 04:20 04:25 04:30 Temperature Pulse Rate 101 H 99 H 98 H Blood Pressure O2 Sat by Pulse 96 96 96 Oximetry 05/18/18 05/18/18 05/18/18 04:35 04:40 04:43 Temperature Pulse Rate 98 H 101 H 95 H Blood Pressure O2 Sat by Pulse 95 96 94 Oximetry 05/18/18 05/18/18 05/18/18 04:45 04:50 04:55 Temperature Pulse Rate 92 H 94 H 101 H Blood Pressure 111/62 O2 Sat by Pulse 95 95 96 Oximetry 05/18/18 05/18/18 05/18/18 05:00 05:05 05:10 Temperature Pulse Rate 94 H 110 H 93 H Blood Pressure O2 Sat by Pulse 96 98 96 Oximetry 05/18/18 05/18/18 05/18/18 05:15 05:20 05:25 Temperature Pulse Rate 97 H 95 H 91 H Blood Pressure O2 Sat by Pulse 96 96 98 Oximetry 05/18/18 05/18/18 05/18/18 05:30 05:35 05:40 Temperature Pulse Rate 92 H 95 H 96 H Blood Pressure O2 Sat by Pulse 97 97 98 Oximetry 05/18/18 05/18/18 05/18/18 05:45 05:47 05:50 Temperature Pulse Rate 95 H 92 H 96 H Blood Pressure 111/64 O2 Sat by Pulse 96 96 Oximetry 05/18/18 05/18/18 05/18/18 05:55 06:00 06:05 Temperature 97.9 F Pulse Rate 91 H 101 H 90 Blood Pressure O2 Sat by Pulse 99 99 98 Oximetry 05/18/18 05/18/18 05/18/18 06:10 06:15 06:20 Temperature Pulse Rate 92 H 96 H 93 H Blood Pressure O2 Sat by Pulse 97 97 97 Oximetry 05/18/18 05/18/18 05/18/18 06:25 06:30 06:35 Temperature Pulse Rate 95 H 90 103 H Blood Pressure O2 Sat by Pulse 97 96 100 Oximetry 05/18/18 05/18/18 05/18/18 06:40 06:45 06:50 Temperature Pulse Rate 94 H 89 109 H Blood Pressure 117/67 O2 Sat by Pulse 100 99 99 Oximetry 05/18/18 05/18/18 05/18/18 06:55 07:00 07:05 Temperature Pulse Rate 93 H 91 H 92 H Blood Pressure O2 Sat by Pulse 98 98 99 Oximetry 05/18/18 05/18/18 05/18/18 07:10 07:15 07:20 Temperature Pulse Rate 89 96 H 106 H Blood Pressure O2 Sat by Pulse 97 97 99 Oximetry 05/18/18 05/18/18 05/18/18 07:25 07:30 07:35 Temperature Pulse Rate 100 H 97 H 101 H Blood Pressure O2 Sat by Pulse 99 98 98 Oximetry 05/18/18 05/18/18 05/18/18 07:40 07:45 07:50 Temperature Pulse Rate 94 H 92 H 94 H Blood Pressure 109/57 O2 Sat by Pulse 97 97 97 Oximetry 05/18/18 05/18/18 05/18/18 08:02 08:05 08:07 Temperature Pulse Rate 99 H 91 H 99 H Blood Pressure 120/66 O2 Sat by Pulse 97 97 Oximetry 05/18/18 05/18/18 05/18/18 08:12 08:17 08:22 Temperature Pulse Rate 98 H 101 H 101 H Blood Pressure O2 Sat by Pulse 97 95 96 Oximetry 05/18/18 05/18/1818 08:27 08:32 08:37 Temperature Pulse Rate 99 H 92 H 101 H Blood Pressure O2 Sat by Pulse 95 98 98 Oximetry 05/18/18 05/18/18 05/18/18 08:42 08:45 08:47 Temperature Pulse Rate 106 H 97 H 113 H Blood Pressure 119/61 O2 Sat by Pulse 99 97 Oximetry 05/18/18 05/18/18 05/18/18 08:52 08:57 09:02 Temperature Pulse Rate 96 H 102 H 98 H Blood Pressure O2 Sat by Pulse 97 97 98 Oximetry 05/18/18 05/18/18 09:07 09:12 Temperature Pulse Rate 98 H 95 H Blood Pressure O2 Sat by Pulse 98 98 Oximetry - Exam Cardiovascular: Normal S1, Normal S2 Lungs: Clear to auscultation Vulva: both: normal FHR: category 1 Uterine Contraction Monitor Mode: External Uterine Contraction Pattern: Absent Deep Tendon Reflex Grade: Normal +2 - Labs Labs: Abnormal Labs 05/16/18 05/16/18 05/16/18 13:31 13:31 21:41 RBC 3.56 L Hgb 9.4 L Hct 28.7 L MCH 26 L Seg Neuts % (Manual) 75.0 H Sodium 134 L Potassium 3.4 L Carbon Dioxide 20 L BUN 3 L Creatinine 0.4 L Glucose 161 H POC Glucose Magnesium 4.30 H 05/17/18 05/17/18 05/17/18 02:34 12:44 19:57 RBC Hgb Hct MCH Seg Neuts % (Manual) Sodium Potassium Carbon Dioxide BUN Creatinine Glucose POC Glucose 225 H Magnesium 2.90 H 4.70 H 05/18/18 05/18/18 05/18/18 00:10 06:02 07:49 RBC Hgb Hct MCH Seg Neuts % (Manual) Sodium Potassium Carbon Dioxide BUN Creatinine Glucose POC Glucose 141 H Magnesium 4.60 H 4.70 H Laboratory Results - last 24 hr 05/17/18 05/17/18 05/18/18 12:44 19:57 00:10 POC Glucose 225 H Magnesium 4.70 H 4.60 H 05/18/18 05/18/18 06:02 07:49 POC Glucose 141 H Magnesium 4.70 H
[2018-05-18 10:00] LABS: Hematocrit 25.7 % (30.3-42.9); Hemoglobin 8.4 gm/dl (10.1-14.3); Lymphocytes # (Auto) 1.5 K/mm3 (1.2-5.4); Lymphocytes % (Auto) 11.6 % (13.4-35.0); Mean Corpuscular HGB Conc 33 % (30-34); Mean Corpuscular Hemoglobin 26 pg (28-32); Mean Corpuscular Volume 80 fl (79-97); Monocytes # (Auto) 0.8 K/mm3 (0.0-0.8); Monocytes % (Auto) 5.9 % (0.0-7.3); Platelet Count 234 K/mm3 (140-440); Red Blood Count 3.21 M/mm3 (3.65-5.03); Red Cell Distribution Width 14.7 % (13.2-15.2)
--- NOTE | 2018-05-18 10:16 | Ultrasound Report ---
ULTRASOUND BIOPHYSICAL PROFILE: ULTRASOUND BIOPHYSICAL PROFILE ADD EXAM: History: Premature rupture of membranes, twin gestation Technique: Transabdominal ultrasound with Doppler interrogation. Baby A 2 - breathing movements 2 - movements 2 - posture and tone 2 - Qualitative amniotic fluid volume 8 - TOTAL SCORE OF POSSIBLE 8 Heart Rate (bpm) 133 Baby B 2 - breathing movements 2 - movements 2 - posture and tone 2 - Qualitative amniotic fluid volume 8 - TOTAL SCORE OF POSSIBLE 8 Heart Rate (bpm) 149
--- NOTE | 2018-05-18 12:20 | Consultation ---
History of Present Illness Reason for consult: PROM (Patient is a 32 year old , LMP 11/08/17, EDC at 27 weeks and 2 day gestation Followed by [facility] for DI/DI twin gestation , Twin A with IUGR ( last [facility] EFW @ 7% ) , resolved Polyhydramnios for Twin A and Twin B who was admitted 05/16/18 after she went to the office for a routine visit. She reported that she had been leaking fluids for 4 days which was 05/12/18. She denied any contractions or bleeding. She did not go to the hospital to get checked. She presented from [facility] OB office 05/16/18 pooling of clear fluid, cervix was 3-4 cm dilated. She was sent in for admission. tracing was CAT1 for 27 weeks gestation , toco showed no contractions. magnesium sulfate for tocolysis and neuroprotection in progress since 05/16/18 , S/P Celestone for FLM, IV antibiotics prophylaxis. 05/16/18 Bedside sonogram revealed Twin A to be VTX, EFW 949 gms, MVP of 1.3 cm BPP for Twin A 6/8 and Twin B to be breech, EFW 953 gms, normal JOHN. BPP was 8/8 for Twin B.) Past History Past Medical History: no pertinent history Past Surgical History: [employer]/uterine surgery (status post salpingectomy for ectopic ?laparoscopic) [employer] History: denies: chlamydia, gonorrhea, hepatitis B, hepatitis C, herpes, HIV , syphilis, trichomonas - Obstetrical History : 6 Medications and Allergies Allergies Allergy/AdvReac Type Severity Reaction Status Date / Time aspirin Allergy Vomiting Verified 06/11/14 08:12 Home Medications Medication Instructions Recorded Confirmed Last Taken Type No Known Home Medications [No 05/13/18 05/17/18 Unknown History Reported Home Medications] Active Meds: Active Medications Acetaminophen (Tylenol) 650 mg PO Q4H PRN PRN Reason: Pain MILD(1-3)/Fever >100.5/ORTEGA Last Admin: 05/18/18 08:17 Dose: 650 mg Amoxicillin (Trimox) 250 mg PO Q8HR ARNOL; Protocol Stop: 05/23/18 13:04 Azithromycin (Zithromax) 250 mg PO QDAY ARNOL Dextrose (D50w (25gm) Syringe) 50 ml IV PRN PRN PRN Reason: Hypoglycemia Docusate Sodium (Colace) 100 mg PO Q12H PRN PRN Reason: Constipation Guaifenesin (Guaifenesin Dm Syrup) 10 ml PO Q6H PRN PRN Reason: Cough Dextrose/Lactated Ringer's (D5lr) 1,000 mls @ 125 mls/hr IV DIRECT ARNOL Lactated Ringer's (Lactated Ringers) 1,000 mls @ 125 mls/hr IV DIRECT ARNOL Last Admin: 05/18/18 07:50 Dose: 125 mls/hr Magnesium Sulfate (Magnesium Sulfate 40gm/1000ml) 40 gm in 1,000 mls @ 50 mls/ hr IV DIRECT ARNOL Last Admin: 05/17/18 16:56 Dose: 2 gm/hr, 50 mls/hr Indomethacin (Indocin) 25 mg PO Q6H ARNOL Stop: 05/18/18 19:59 Last Admin: 05/18/18 08:11 Dose: 25 mg Insulin Human Regular (Humulin R) 0 units SUB-Q ACHS ARNOL; Protocol Insulin Human Regular (Humulin R) 0 units SUB-Q Q6HR ARNOL; Protocol Multivitamins/Iron/Calcium ( Vitamin) 1 each PO QDAY ARNOL Last Admin: 05/17/18 10:07 Dose: 1 each Ondansetron HCl (Zofran) 4 mg IV Q6H PRN PRN Reason: Nausea And Vomiting Senna/Docusate Sodium (Senokot S) 2 tab PO Q12H PRN PRN Reason: Laxative Effect Simethicone (Mylicon) 80 mg PO Q6H PRN PRN Reason: Gas pain Review of Systems Constitutional: no fever, no chills Eyes: no photophobia Ears, nose, mouth and throat: no headache Cardiovascular: no rapid/irregular heart beat, no edema, no shortness of breath , no high blood pressure Respiratory: no cough, no shortness of breath Breasts: deferred Gastrointestinal: no abdominal pain, no nausea, no vomiting, no indigestion Genitourinary: leakage of fluid (minimal LFO during consultation ), no vaginal bleeding, no vaginal discharge Musculoskeletal: no low back pain Integumentary: no rash, no pruritis Neurological: no numbness, no seizures, no headaches Endocrine: other (History of GDM. Recent dx of GDM on 05/16/18 - 211 mg ), no polyuria Hematologic/Lymphatic: no easy bruising, no easy bleeding - Vital Signs Vital signs: Vital Signs Temp Pulse Resp BP Pulse Ox 99.0 F 110 H 16 118/62 95 05/16/18 13:14 05/16/18 13:14 05/16/18 13:14 05/16/18 13:14 05/16/18 13:14 Temp Pulse Resp BP Pulse Ox 97.9 F 94 H 16 109/52 98 05/18/18 06:00 05/18/18 12:13 05/17/18 20:49 05/18/18 11:45 05/18/18 12:13 - Physical Exam Breasts: Positive: deferred Cardiovascular: Regular rate Lungs: Positive: Normal air movement Abdomen: Negative: tenderness, guarding Cervix: Positive: other Uterus: Positive: other (gravid ). Negative: tender Extremities: Positive: edema (trace ) Deep Tendon Reflex Grade: Normal +2 - Obstetrical FHR: category 1 (for 27 weeks gestation ) Uterine Contraction Monitor Mode: External Cervical Dilatation: 3.5 (Per Dr. Sims ( E on 05/17/18)) Uterine Contraction Pattern: Absent Results Result Diagrams: 05/18/18 09:13 05/16/18 13:31 Abnormal lab results 05/17/18 05/17/18 05/18/18 Range/Units 12:44 19:57 00:10 WBC (4.5-11.0) K/mm3 RBC (3.65-5.03) M/mm3 Hgb (10.1-14.3) gm/dl Hct (30.3-42.9) % MCH (28-32) pg Lymph % (Auto) (13.4-35.0) % Seg Neutrophils % (40.0-70.0) % Seg Neutrophils # (1.8-7.7) K/mm3 POC Glucose 225 H (70-105) Magnesium 4.70 H 4.60 H (1.7-2.3) mg/dL 05/18/18 05/18/18 05/18/18 Range/Units 06:02 07:49 09:13 WBC 13.0 H (4.5-11.0) K/mm3 RBC 3.21 L (3.65-5.03) M/mm3 Hgb 8.4 L (10.1-14.3) gm/dl Hct 25.7 L (30.3-42.9) % MCH 26 L (28-32) pg Lymph % (Auto) 11.6 L (13.4-35.0) % Seg Neutrophils % 82.5 H (40.0-70.0) % Seg Neutrophils # 10.7 H (1.8-7.7) K/mm3 POC Glucose 141 H (70-105) Magnesium 4.70 H (1.7-2.3) mg/dL All other labs normal. Ultrasound: report reviewed (See [facility] for Full report ) Assessment and Plan A) - TIUP @ 27.2 weeks - DI/DI twin gestation - Previous [facility] assessment Twin A with IUGR Twin A and Twin B with Polyhydramnios - PPROM from 05/12/18 however patient presented for evaluation on 05/16/18 - No ctx noted on monitoring - IV ABX as protocol - Reported advanced cervical dilation of 3-4 cm - Twin A with Oligohydramnios MVP of 1.3 cm ( 05/16/18 assessment) - Twin A BPP of 6/8 ( -2 for JOHN ) - Twin A with reassuring growth assessment EFW @ 22% - Twin B in Breech presentation with reassuring MVP and BPP of /8 - Twin B growth asssessment EFW @ 23% - Anemia with Hgb of 8.4 mg - History of GDM - Recent dx of GDM ( 05/16/18) 1 GTT of 211 mg ] - Elevated glycemic levels S/P BMZ - OB reports patient declining sliding scale insulin recommendation - S/P BMZ for FLM - MgSO4 in progress since 05/16/18 for neuroprotection - NO sxs of chorio - Stable WBC - S/P NICU consult - Currently on indocin P) - In agreement with in patient management - Discontinue MgSO4 - Treat anemia - Weekly CBC - FBS and PP ( Treat BS accordingly if patient refuses treatment- advised to sign medical refusal ) - Due to twin gestation 2400- 2500 ADA diet to include bedtime snacks - Continous monitoring - Indomethacin to be discontinued as per protocol - Document HgbA1C and Fructosamine - Twice weekly BPP for Twin A and Twin B ( MVP to documented ) - Twin growth assessment Q 2 weeks - Delivery with sxs of chorio , twin compromise or maternal compromise - Delivery at 34 weeks with no compromise - Convert ABX from IVB to PO regimen
[2018-05-18] MEDS: ZITHROMAX PO SCH (12:33)
[2018-05-18] MEDS: TRIMOX PO SCH ×2 (13:43→22:18)
[2018-05-18] MEDS: PRENATAL VITAMIN PO SCH (13:45)
[2018-05-19] MEDS: TRIMOX PO SCH ×4 (06:17→21:20)
[2018-05-19] MEDS: TYLENOL PO PRN ×2 (06:22→23:59)
[2018-05-19] MEDS: HumuLIN R SUB-Q SCH (06:24)
--- NOTE | 2018-05-19 08:43 | Progress Note ---
Assessment and Plan A: 32-year-old at 27+3 weeks with Di Di Twins s/p PPROM baby A -No contractions -No signs or symptoms of chorio Issues -Baby A cephalic/Baby B breech -s/p Growth on 05/16/18 Twin A EFW 949 gms, MVP of 1.3 cm and Twin B to be breech , EFW 953 gms, -s/p BPP on 05/18/18 Twin A ??04/12 and Twin B 04/12 -s/p BMZ course on 05/17/18 -s/p Mag on 05/19/18 -On latency antibitiocs -GDM - Patient refusing insulin. Wants to try diet control for now -Cervix ~ 3-4 cm -Patient desires vaginal delivery and conversion of twin B if possible. Discussed associated risks with patient in detail P: -MFM consult reviewed, Thx -BPP 2 x weekly -Growth every 2 weeks -Discussed the importance of continuous monitoring with the patient -Expectant management until 34 wks - Patient Problems (1) 27 weeks gestation of Current Visit: Yes Status: Acute (2) Dichorionic diamniotic twin in third trimester Current Visit: Yes Status: Acute (3) premature rupture of membranes (PPROM) with unknown onset of labor Current Visit: Yes Status: Acute Subjective - Subjective Date of service: 05/19/18 Principal diagnosis: Twins gestation at 27+3 weeks with PPOM Interval history: Patient seen and examined, stable. No fever or chills, no abdominal pain, + mvt. Patient continues to decline insulin, she wants to try diet controlled for now. She is status post MFM consultation yesterday. She is status post magnesium, Celestone and Indocin She has no fever or chills, no vaginal discharge or VB, no abdominal tenderness +FM Patient reports: new complaints, loss of fluid, movement normal, no vaginal bleeding, no contractions Objective - Vital Signs Vital Signs: Vital Signs - 12hr 05/18/18 05/18/18 05/18/18 20:43 20:48 20:53 Temperature Pulse Rate 93 H 89 89 Respiratory Rate Blood Pressure O2 Sat by Pulse 97 98 97 Oximetry 05/18/18 05/18/18 05/18/18 20:58 21:00 21:03 Temperature 98.3 F Pulse Rate 90 98 H Respiratory 18 Rate Blood Pressure O2 Sat by Pulse 96 98 Oximetry 05/18/18 05/18/18 05/18/18 21:08 21:13 21:18 Temperature Pulse Rate 110 H 92 H 96 H Respiratory Rate Blood Pressure O2 Sat by Pulse 98 97 98 Oximetry 05/18/18 05/18/18 05/18/18 21:23 21:28 21:33 Temperature Pulse Rate 94 H 96 H 102 H Respiratory Rate Blood Pressure O2 Sat by Pulse 97 98 99 Oximetry 05/18/18 05/18/18 05/18/18 21:38 21:43 21:48 Temperature Pulse Rate 98 H 96 H 104 H Respiratory Rate Blood Pressure O2 Sat by Pulse 98 98 97 Oximetry 05/18/18 05/18/18 05/18/18 21:53 21:58 22:03 Temperature Pulse Rate 98 H 104 H 92 H Respiratory Rate Blood Pressure O2 Sat by Pulse 97 98 98 Oximetry 05/18/18 05/18/18 05/18/18 22:08 22:13 22:18 Temperature Pulse Rate 94 H 93 H 94 H Respiratory Rate Blood Pressure O2 Sat by Pulse 98 98 98 Oximetry 05/18/18 05/18/18 05/18/18 22:23 22:28 22:33 Temperature Pulse Rate 93 H 100 H 111 H Respiratory Rate Blood Pressure O2 Sat by Pulse 98 98 99 Oximetry 05/18/18 05/18/18 05/18/18 22:38 22:43 22:48 Temperature Pulse Rate 110 H 117 H 118 H Respiratory Rate Blood Pressure O2 Sat by Pulse 97 98 93 Oximetry 05/18/18 05/18/18 05/18/18 22:49 22:54 22:59 Temperature Pulse Rate 102 H 101 H 89 Respiratory Rate Blood Pressure O2 Sat by Pulse 99 98 96 Oximetry 05/18/18 05/18/18 05/18/18 23:00 23:04 23:08 Temperature 98.2 F Pulse Rate 93 H 90 Respiratory 16 Rate Blood Pressure O2 Sat by Pulse 95 94 Oximetry 05/18/18 05/18/18 05/18/18 23:09 23:14 23:18 Temperature Pulse Rate 89 95 H 97 H Respiratory Rate Blood Pressure O2 Sat by Pulse 94 95 94 Oximetry 09/13/18 09/13/18 09/13/18 23:19 23:23 23:24 Temperature Pulse Rate 91 H 95 H 95 H Respiratory Rate Blood Pressure O2 Sat by Pulse 95 94 94 Oximetry 05/18/18 05/18/18 05/18/18 23:29 23:34 23:39 Temperature Pulse Rate 97 H 95 H 100 H Respiratory Rate Blood Pressure O2 Sat by Pulse 94 94 94 Oximetry 05/18/18 05/18/18 05/18/18 23:44 23:45 23:49 Temperature Pulse Rate 96 H 98 H 92 H Respiratory Rate Blood Pressure O2 Sat by Pulse 94 94 95 Oximetry 05/18/18 05/18/18 05/18/18 23:51 23:54 23:57 Temperature Pulse Rate 100 H 97 H 99 H Respiratory Rate Blood Pressure O2 Sat by Pulse 94 95 94 Oximetry 05/18/18 05/19/18 05/19/18 23:59 00:04 00:09 Temperature Pulse Rate 104 H 109 H 100 H Respiratory Rate Blood Pressure O2 Sat by Pulse 93 94 95 Oximetry 05/19/18 05/19/18 05/19/18 00:10 00:14 00:16 Temperature Pulse Rate 109 H 102 H 108 H Respiratory Rate Blood Pressure O2 Sat by Pulse 94 93 94 Oximetry 05/19/18 05/19/18 05/19/18 00:19 00:23 00:24 Temperature Pulse Rate 105 H 101 H 108 H Respiratory Rate Blood Pressure O2 Sat by Pulse 95 94 96 Oximetry 05/19/18 05/19/18 05/19/18 00:28 00:29 00:34 Temperature Pulse Rate 96 H 98 H 100 H Respiratory Rate Blood Pressure O2 Sat by Pulse 94 95 94 Oximetry 05/19/18 05/19/18 05/19/18 00:39 00:44 00:48 Temperature Pulse Rate 104 H 99 H 103 H Respiratory Rate Blood Pressure O2 Sat by Pulse 94 94 94 Oximetry 05/19/18 05/19/18 05/19/18 00:49 00:54 00:59 Temperature Pulse Rate 103 H 102 H 101 H Respiratory Rate Blood Pressure O2 Sat by Pulse 95 94 94 Oximetry 05/19/18 05/19/18 05/19/18 01:04 01:05 01:09 Temperature Pulse Rate 102 H 100 H 101 H Respiratory Rate Blood Pressure O2 Sat by Pulse 94 94 94 Oximetry 05/19/18 05/19/18 05/19/18 01:12 01:14 01:18 Temperature Pulse Rate 100 H 102 H 103 H Respiratory Rate Blood Pressure O2 Sat by Pulse 94 94 94 Oximetry 05/19/18 05/19/18 05/19/18 01:19 01:24 01:29 Temperature Pulse Rate 109 H 102 H 103 H Respiratory Rate Blood Pressure O2 Sat by Pulse 95 95 96 Oximetry 05/19/18 05/19/18 05/19/18 01:34 01:39 01:44 Temperature Pulse Rate 96 H 95 H 102 H Respiratory Rate Blood Pressure O2 Sat by Pulse 97 96 96 Oximetry 05/19/18 05/19/18 05/19/18 01:49 01:51 01:54 Temperature Pulse Rate 99 H 109 H 102 H Respiratory Rate Blood Pressure O2 Sat by Pulse 96 94 95 Oximetry 05/19/18 05/19/18 05/19/18 01:59 02:00 02:04 Temperature 98.7 F Pulse Rate 111 H 119 H Respiratory 16 Rate Blood Pressure O2 Sat by Pulse 95 96 Oximetry 05/19/18 05/19/18 05/19/18 02:22 02:50 02:55 Temperature Pulse Rate 93 H 102 H 90 Respiratory Rate Blood Pressure 121/65 O2 Sat by Pulse 99 98 Oximetry 05/19/18 05/19/18 05/19/18 03:00 03:05 03:10 Temperature Pulse Rate 91 H 89 90 Respiratory Rate Blood Pressure O2 Sat by Pulse 98 98 98 Oximetry 05/19/18 05/19/18 05/19/18 03:15 03:20 03:25 Temperature Pulse Rate 92 H 99 H 98 H Respiratory Rate Blood Pressure O2 Sat by Pulse 98 99 97 Oximetry 05/19/18 05/19/18 05/19/18 03:30 03:35 03:40 Temperature Pulse Rate 92 H 94 H 90 Respiratory Rate Blood Pressure O2 Sat by Pulse 98 98 98 Oximetry 05/19/18 05/19/18 05/19/18 03:45 03:50 03:55 Temperature Pulse Rate 96 H 96 H 94 H Respiratory Rate Blood Pressure O2 Sat by Pulse 98 97 98 Oximetry 05/19/18 05/19/18 05/19/18 04:00 04:05 04:10 Temperature Pulse Rate 86 100 H 92 H Respiratory Rate Blood Pressure O2 Sat by Pulse 98 98 99 Oximetry 05/19/18 05/19/1805/19/18 04:15 04:20 04:25 Temperature Pulse Rate 94 H 93 H 89 Respiratory Rate Blood Pressure O2 Sat by Pulse 98 98 97 Oximetry 05/19/18 05/19/18 05/19/18 04:30 04:35 04:40 Temperature Pulse Rate 92 H 91 H 92 H Respiratory Rate Blood Pressure O2 Sat by Pulse 97 97 97 Oximetry 05/19/18 05/19/18 05/19/18 04:45 04:50 04:55 Temperature Pulse Rate 91 H 93 H 92 H Respiratory Rate Blood Pressure O2 Sat by Pulse 97 98 97 Oximetry 05/19/18 05/19/18 05/19/18 05:00 05:05 05:10 Temperature Pulse Rate 91 H 91 H 88 Respiratory Rate Blood Pressure O2 Sat by Pulse 97 96 97 Oximetry 05/19/18 05/19/18 05/19/18 05:15 05:20 05:25 Temperature Pulse Rate 90 87 95 H Respiratory Rate Blood Pressure O2 Sat by Pulse 97 97 97 Oximetry 05/19/18 05/19/18 05/19/18 05:30 05:35 05:40 Temperature Pulse Rate 91 H 95 H 91 H Respiratory Rate Blood Pressure O2 Sat by Pulse 98 97 97 Oximetry 05/19/18 05/19/18 05/19/18 05:45 05:50 05:55 Temperature Pulse Rate 92 H 84 104 H Respiratory Rate Blood Pressure O2 Sat by Pulse 97 99 98 Oximetry 05/19/18 05/19/18 05/19/18 06:00 06:05 06:18 Temperature 98.9 F Pulse Rate 86 91 H 96 H Respiratory 18 Rate Blood Pressure O2 Sat by Pulse 97 96 100 Oximetry 05/19/18 05/19/18 05/19/18 06:23 06:28 06:33 Temperature Pulse Rate 83 93 H 80 Respiratory Rate Blood Pressure O2 Sat by Pulse 99 100 99 Oximetry 05/19/18 05/19/18 05/19/18 06:38 06:43 06:48 Temperature Pulse Rate 84 90 93 H Respiratory Rate Blood Pressure O2 Sat by Pulse 99 99 99 Oximetry 05/19/18 05/19/18 05/19/18 06:53 06:58 07:03 Temperature Pulse Rate 73 77 77 Respiratory Rate Blood Pressure O2 Sat by Pulse 100 99 99 Oximetry 05/19/18 05/19/18 05/19/18 07:08 07:13 07:18 Temperature Pulse Rate 99 H 88 89 Respiratory Rate Blood Pressure O2 Sat by Pulse 99 97 97 Oximetry 05/19/18 05/19/18 05/19/18 07:23 07:28 07:33 Temperature Pulse Rate 83 94 H 88 Respiratory Rate Blood Pressure O2 Sat by Pulse 97 97 97 Oximetry 05/19/18 05/19/18 05/19/18 07:38 07:43 07:48 Temperature Pulse Rate 92 H 97 H 101 H Respiratory Rate Blood Pressure O2 Sat by Pulse 97 98 97 Oximetry 05/19/18 05/19/18 05/19/18 07:53 07:58 08:03 Temperature Pulse Rate 102 H 99 H 90 Respiratory Rate Blood Pressure O2 Sat by Pulse 97 99 96 Oximetry 05/19/18 08:08 Temperature Pulse Rate 92 H Respiratory Rate Blood Pressure O2 Sat by Pulse 99 Oximetry - Exam Abdomen: Present: normal appearance, soft. Absent: distention, tenderness, guarding, rigidity Uterus: Absent: tenderness - Labs Labs: Abnormal Labs 05/16/18 05/16/18 05/16/18 13:31 13:31 21:41 WBC RBC 3.56 L Hgb 9.4 L Hct 28.7 L MCH 26 L Lymph % (Auto) Seg Neutrophils % Seg Neuts % (Manual) 75.0 H Seg Neutrophils # Sodium 134 L Potassium 3.4 L Carbon Dioxide 20 L BUN 3 L Creatinine 0.4 L Glucose 161 H POC Glucose Magnesium 4.30 H 05/17/18 05/17/18 05/17/18 02:34 12:44 19:57 WBC RBC Hgb Hct MCH Lymph % (Auto) Seg Neutrophils % Seg Neuts % (Manual) Seg Neutrophils # Sodium Potassium Carbon Dioxide BUN Creatinine Glucose POC Glucose 225 H Magnesium 2.90 H 4.70 H 05/18/18 05/18/18 05/18/18 00:10 06:02 07:49 WBC RBC Hgb Hct MCH Lymph % (Auto) Seg Neutrophils % Seg Neuts % (Manual) Seg Neutrophils # Sodium Potassium Carbon Dioxide BUN Creatinine Glucose POC Glucose 141 H Magnesium 4.60 H 4.70 H 05/18/18 05/18/18 05/18/18 09:13 12:26 12:30 WBC 13.0 H RBC 3.21 L Hgb 8.4 L Hct 25.7 L MCH 26 L Lymph % (Auto) 11.6 L Seg Neutrophils % 82.5 H Seg Neuts % (Manual) Seg Neutrophils # 10.7 H Sodium Potassium Carbon Dioxide BUN Creatinine Glucose POC Glucose 125 H Magnesium 4.20 H 05/18/18 05/18/18 05/18/18 14:59 20:00 22:23 WBC RBC Hgb Hct MCH Lymph % (Auto) Seg Neutrophils % Seg Neuts % (Manual) Seg Neutrophils # Sodium Potassium Carbon Dioxide BUN Creatinine Glucose POC Glucose 179 H 158 H 144 H Magnesium Laboratory Results - last 24 hr 05/18/18 05/18/18 05/18/18 07:49 09:13 12:26 WBC 13.0 H RBC 3.21 L Hgb 8.4 L Hct 25.7 L MCV 80 MCH 26 L MCHC 33 RDW 14.7 Plt Count 234 Lymph % (Auto) 11.6 L Rice % (Auto) 5.9 Eos % (Auto) 0.0 Baso % (Auto) 0.0 Lymph # 1.5 Rice # 0.8 Eos # 0.0 Baso # 0.0 Seg Neutrophils % 82.5 H Seg Neutrophils # 10.7 H POC Glucose Magnesium 4.70 H 4.20 H 05/18/18 05/18/18 05/18/18 12:30 14:59 20:00 WBC RBC Hgb Hct MCV MCH MCHC RDW Plt Count Lymph % (Auto) Rice % (Auto) Eos % (Auto) Baso % (Auto) Lymph # Rice # Eos # Baso # Seg Neutrophils % Seg Neutrophils # POC Glucose 125 H 179 H 158 H Magnesium 05/18/18 05/19/18 22:23 06:20 WBC RBC Hgb Hct MCV MCH MCHC RDW Plt Count Lymph % (Auto) Rice % (Auto) Eos % (Auto) Baso % (Auto) Lymph # Rice # Eos # Baso # Seg Neutrophils % Seg Neutrophils # POC Glucose 144 H 95 Magnesium
[2018-05-19] MEDS: PRENATAL VITAMIN PO SCH (10:48)
[2018-05-19] MEDS: FEOSOL PO SCH ×3 (10:49→21:19)
[2018-05-19] MEDS: ZITHROMAX PO SCH (10:49)
[2018-05-20] MEDS: TRIMOX PO SCH ×2 (07:08→19:27)
[2018-05-20] MEDS: PRENATAL VITAMIN PO SCH (10:23)
[2018-05-20] MEDS: FEOSOL PO SCH ×2 (10:23→20:25)
[2018-05-20] MEDS: ZITHROMAX PO SCH (10:24)
[2018-05-20] MEDS: TYLENOL PO PRN ×2 (10:30→23:47)
--- NOTE | 2018-05-20 10:37 | Progress Note ---
Assessment and Plan - Patient Problems (1) 27 weeks gestation of Current Visit: Yes Status: Acute (2) Dichorionic diamniotic twin in third trimester Current Visit: Yes Status: Acute (3) premature rupture of membranes (PPROM) with unknown onset of labor Current Visit: Yes Status: Acute Plan to address problem: Continue current management. CBC today, then Q48 hrs. BPP today. APA consult was done. Continous and toco monitoring. (4) Anemia Current Visit: Yes Status: Acute Qualifiers: Anemia type: iron deficiency Subjective - Subjective Date of service: 05/20/18 Principal diagnosis: Twins gestation at 27+3 weeks with PPOM Interval history: Patient is a 32 year old , LMP 11/08/17, EDC 08/15/18 at 27 weeks and 4 days with twin gestation who was admitted a 4 days ago after she went to the office for a routine visit. She reported that she had been leaking fluids for 4 days prior to going to the office. She denied any contractions or bleeding. She did not go to the hospital to get checked after she started leaking. On exam in the office, there was pooling of clear fluid, cervix was 3- 4 cm dilated. She was sent in for admission. tracing was CAT1 for both babies, toco showed no contractions. Magnesium sulfate for tocolysis and neuroprotection was given and discontinued 2 days ago, Celestone for FLM was completed, IV antibiotics prophylaxis was given. Bedside sonogram showed baby A to be VTX, EFW 949 gms, normal JOHN and baby B to be breech, EFW 953 gms, normal JOHN. BPP was 8/8 for both babies. NICU consult was done. APA consult was done. Agreed with current management. This AM, she denies any complaint. Patient reports: new complaints, loss of fluid, movement normal, no vaginal bleeding, no contractions Objective - Vital Signs Vital Signs: Vital Signs - 12hr 05/19/18 05/19/18 05/19/18 22:37 22:42 22:47 Temperature Pulse Rate 89 121 H 94 H Respiratory Rate Blood Pressure Blood Pressure [Right] O2 Sat by Pulse 97 97 98 Oximetry 05/19/18 05/19/18 05/19/18 23:15 23:20 23:25 Temperature Pulse Rate 107 H 91 H 82 Respiratory Rate Blood Pressure Blood Pressure [Right] O2 Sat by Pulse 99 98 98 Oximetry 05/19/18 05/19/18 05/19/18 23:30 23:35 23:40 Temperature Pulse Rate 77 88 93 H Respiratory Rate Blood Pressure Blood Pressure [Right] O2 Sat by Pulse 98 98 98 Oximetry 05/19/18 05/19/18 05/20/18 23:45 23:50 00:06 Temperature 98.3 F Pulse Rate 89 91 H 91 H Respiratory 17 Rate Blood Pressure 106/61 Blood Pressure 106/61 [Right] O2 Sat by Pulse 97 97 Oximetry 05/20/18 05/20/18 05/20/18 00:09 00:14 00:19 Temperature Pulse Rate 107 H 87 83 Respiratory Rate Blood Pressure Blood Pressure [Right] O2 Sat by Pulse 98 98 98 Oximetry 05/20/18 05/20/18 05/20/18 00:24 00:29 00:34 Temperature Pulse Rate 93 H 98 H 97 H Respiratory Rate Blood Pressure Blood Pressure [Right] O2 Sat by Pulse 99 96 98 Oximetry 05/20/18 05/20/18 05/20/18 00:39 00:44 00:49 Temperature Pulse Rate 97 H 90 95 H Respiratory Rate Blood Pressure Blood Pressure [Right] O2 Sat by Pulse 97 98 97 Oximetry 05/20/18 05/20/18 05/20/18 00:54 00:59 01:04 Temperature Pulse Rate 86 83 87 Respiratory Rate Blood Pressure Blood Pressure [Right] O2 Sat by Pulse 99 97 97 Oximetry 05/20/18 05/20/18 05/20/18 01:09 01:14 01:19 Temperature Pulse Rate 93 H 82 89 Respiratory Rate Blood Pressure Blood Pressure [Right] O2 Sat by Pulse 97 97 97 Oximetry 05/20/18 05/20/18 05/20/18 01:24 01:29 04:28 Temperature Pulse Rate 86 88 104 H Respiratory Rate Blood Pressure Blood Pressure [Right] O2 Sat by Pulse 97 97 97 Oximetry 05/20/18 05/20/18 05/20/18 04:33 04:35 04:38 Temperature Pulse Rate 119 H 86 90 Respiratory Rate Blood Pressure 116/68 Blood Pressure [Right] O2 Sat by Pulse 99 95 Oximetry 05/20/18 05/20/18 05/20/18 04:43 04:48 04:53 Temperature Pulse Rate 90 89 84 Respiratory Rate Blood Pressure Blood Pressure [Right] O2 Sat by Pulse 95 95 96 Oximetry 05/20/18 05/20/18 05/20/18 04:58 05:03 05:08 Temperature Pulse Rate 83 86 91 H Respiratory Rate Blood Pressure Blood Pressure [Right] O2 Sat by Pulse 97 96 95 Oximetry 05/20/18 05/20/18 05/20/18 05:13 05:19 05:23 Temperature 96.9 F L Pulse Rate 89 117 H 83 Respiratory 20 Rate Blood Pressure Blood Pressure 116/68 [Right] O2 Sat by Pulse 97 99 97 Oximetry 05/20/18 05/20/18 05/20/18 05:24 05:29 05:34 Temperature Pulse Rate 79 84 88 Respiratory Rate Blood Pressure Blood Pressure [Right] O2 Sat by Pulse 97 98 98 Oximetry 05/20/18 05/20/18 05/20/18 05:39 05:44 05:49 Temperature Pulse Rate 89 89 100 H Respiratory Rate Blood Pressure Blood Pressure [Right] O2 Sat by Pulse 98 98 97 Oximetry 05/20/18 05/20/18 05/20/18 05:54 05:59 06:06 Temperature Pulse Rate 90 90 99 H Respiratory Rate Blood Pressure Blood Pressure [Right] O2 Sat by Pulse 98 100 100 Oximetry 05/20/18 05/20/18 05/20/18 06:11 06:16 06:21 Temperature Pulse Rate 83 87 79 Respiratory Rate Blood Pressure Blood Pressure [Right] O2 Sat by Pulse 97 98 97 Oximetry 05/20/18 05/20/18 05/20/18 06:26 06:31 06:36 Temperature Pulse Rate 86 89 83 Respiratory Rate Blood Pressure Blood Pressure [Right] O2 Sat by Pulse 97 97 97 Oximetry 05/20/18 05/20/18 05/20/18 06:41 06:46 06:51 Temperature Pulse Rate 85 94 H 83 Respiratory Rate Blood Pressure Blood Pressure [Right] O2 Sat by Pulse 98 97 96 Oximetry 05/20/18 05/20/18 05/20/18 06:56 07:01 07:06 Temperature Pulse Rate 81 81 91 H Respiratory Rate Blood Pressure Blood Pressure [Right] O2 Sat by Pulse 97 97 97 Oximetry 05/20/18 05/20/18 05/20/18 07:11 07:14 07:16 Temperature Pulse Rate 108 H 110 H 109 H Respiratory Rate Blood Pressure Blood Pressure [Right] O2 Sat by Pulse 98 85 99 Oximetry 05/20/18 05/20/18 05/20/18 07:21 07:26 07:31 Temperature Pulse Rate 79 73 87 Respiratory Rate Blood Pressure Blood Pressure [Right] O2 Sat by Pulse 98 98 97 Oximetry 05/20/18 05/20/18 05/20/18 07:36 07:41 07:46 Temperature Pulse Rate 95 H 97 H 91 H Respiratory Rate Blood Pressure Blood Pressure [Right] O2 Sat by Pulse 98 97 97 Oximetry 05/20/18 05/20/18 05/20/18 07:51 07:56 08:01 Temperature Pulse Rate 101 H 88 72 Respiratory Rate Blood Pressure Blood Pressure [Right] O2 Sat by Pulse 98 98 98 Oximetry 05/20/18 05/20/18 05/20/18 08:06 08:11 08:16 Temperature Pulse Rate 83 98 H 90 Respiratory Rate Blood Pressure Blood Pressure [Right] O2 Sat by Pulse 97 99 99 Oximetry 05/20/18 05/20/18 05/20/18 08:31 08:32 08:37 Temperature 97.7 F Pulse Rate 95 H 83 93 H Respiratory 18 Rate Blood Pressure 120/80 Blood Pressure 120/80 [Right] O2 Sat by Pulse 98 98 96 Oximetry 05/20/18 05/20/18 05/20/18 08:42 08:47 08:52 Temperature Pulse Rate 92 H 80 95 H Respiratory Rate Blood Pressure Blood Pressure [Right] O2 Sat by Pulse 98 98 95 Oximetry 05/20/18 05/20/18 05/20/18 08:57 09:02 09:07 Temperature Pulse Rate 90 92 H 96 H Respiratory Rate Blood Pressure Blood Pressure [Right] O2 Sat by Pulse 97 96 97 Oximetry 05/20/18 05/20/18 05/20/18 09:12 09:17 09:22 Temperature Pulse Rate 95 H 98 H 94 H Respiratory Rate Blood Pressure Blood Pressure [Right] O2 Sat by Pulse 97 97 97 Oximetry 05/20/18 05/20/18 05/20/18 09:27 09:32 09:37 Temperature Pulse Rate 86 91 H 83 Respiratory Rate Blood Pressure Blood Pressure [Right] O2 Sat by Pulse 96 98 97 Oximetry 05/20/18 05/20/18 05/20/18 09:42 09:47 09:52 Temperature Pulse Rate 100 H 103 H 97 H Respiratory Rate Blood Pressure Blood Pressure [Right] O2 Sat by Pulse 96 98 96 Oximetry 05/20/18 05/20/18 05/20/18 09:57 10:02 10:07 Temperature Pulse Rate 81 89 89 Respiratory Rate Blood Pressure Blood Pressure [Right] O2 Sat by Pulse 98 97 96 Oximetry 05/20/18 05/20/18 05/20/18 10:12 10:17 10:22 Temperature Pulse Rate 90 85 86 Respiratory Rate Blood Pressure Blood Pressure [Right] O2 Sat by Pulse 99 97 96 Oximetry 05/20/18 05/20/18 05/20/18 10:27 10:30 10:32 Temperature Pulse Rate 103 H 88 Respiratory 16 Rate Blood Pressure Blood Pressure [Right] O2 Sat by Pulse 98 98 Oximetry - Exam Cardiovascular: Normal S1, Normal S2 Lungs: Clear to auscultation Vulva: both: normal FHR: category 1 Uterine Contraction Monitor Mode: External Uterine Contraction Pattern: Absent Deep Tendon Reflex Grade: Normal +2 - Labs Labs: Abnormal Labs 05/16/18 05/16/18 05/16/18 13:31 13:31 21:41 WBC RBC 3.56 L Hgb 9.4 L Hct 28.7 L MCH 26 L Lymph % (Auto) Seg Neutrophils % Seg Neuts % (Manual) 75.0 H Seg Neutrophils # Sodium 134 L Potassium 3.4 L Carbon Dioxide 20 L BUN 3 L Creatinine 0.4 L Glucose 161 H POC Glucose Magnesium 4.30 H 05/17/18 05/17/18 05/17/18 02:34 12:44 19:57 WBC RBC Hgb Hct MCH Lymph % (Auto) Seg Neutrophils % Seg Neuts % (Manual) Seg Neutrophils # Sodium Potassium Carbon Dioxide BUN Creatinine Glucose POC Glucose 225 H Magnesium 2.90 H 4.70 H 05/18/18 05/18/18 05/18/18 00:10 06:02 07:49 WBC RBC Hgb Hct MCH Lymph % (Auto) Seg Neutrophils % Seg Neuts % (Manual) Seg Neutrophils # Sodium Potassium Carbon Dioxide BUN Creatinine Glucose POC Glucose 141 H Magnesium 4.60 H 4.70 H 05/18/18 05/18/18 05/18/18 09:13 12:26 12:30 WBC 13.0 H RBC 3.21 L Hgb 8.4 L Hct 25.7 L MCH 26 L Lymph % (Auto) 11.6 L Seg Neutrophils % 82.5 H Seg Neuts % (Manual) Seg Neutrophils # 10.7 H Sodium Potassium Carbon Dioxide BUN Creatinine Glucose POC Glucose 125 H Magnesium 4.20 H 05/18/18 05/18/18 05/18/18 14:59 20:00 22:23 WBC RBC Hgb Hct MCH Lymph % (Auto) Seg Neutrophils % Seg Neuts % (Manual) Seg Neutrophils # Sodium Potassium Carbon Dioxide BUN Creatinine Glucose POC Glucose 179 H 158 H 144 H Magnesium 05/19/18 23:41 WBC RBC Hgb Hct MCH Lymph % (Auto) Seg Neutrophils % Seg Neuts % (Manual) Seg Neutrophils # Sodium Potassium Carbon Dioxide BUN Creatinine Glucose POC Glucose 141 H Magnesium Laboratory Results - last 24 hr 05/19/18 23:41 POC Glucose 141 H - Results US- obstetric: report reviewed
--- NOTE | 2018-05-20 12:22 | Ultrasound Report ---
FINAL REPORT EXAM: US OB LIMITED HISTORY: PPROM COMPARISON: Obstetric ultrasound performed on 05/18/2018 TECHNIQUE: Limited obstetric ultrasound of baby B was performed to evaluate for amniotic fluid . FINDINGS: heart rate is 167 beats per minute. The largest amniotic fluid pocket is 6.3 centimeters. Baby B is in cephalic presentation. IMPRESSION: Baby B in cephalic presentation, with heart rate of 167 beats per minute. Largest amniotic fluid pocket is 6.3 centimeters.
--- NOTE | 2018-05-20 12:26 | Ultrasound Report ---
FINAL REPORT EXAM: US OB BPP WO NON-STRESS HISTORY: PPROM COMPARISON: Obstetric ultrasound performed on 05/18/2018 TECHNIQUE: Limited obstetric ultrasound was performed for biophysical profile of baby A. FINDINGS: Biophysical profile score: breathin movement: 2 posterior and tone: 2 Amniotic Fluid: 2 Total score: 8 heart rate: 156 beats per minute. IMPRESSION: Normal biophysical profile score of 8 for baby A. heart rate of 156 beats per minute.
--- NOTE | 2018-05-20 12:31 | Ultrasound Report ---
FINAL REPORT EXAM: US OB BPP EA ADD EXAM HISTORY: PPROM COMPARISON: Limited all obstetric ultrasound performed on 05/18/2018 TECHNIQUE: Biophysical profile for baby B was performed. FINDINGS: Biophysical profile score: tone: 2 breathin movement: 2 Amniotic Fluid: 2 Total score: 8 heart rate: 161 beats per minute. IMPRESSION: Normal biophysical profile score of 8 for baby B. heart rate: 161 beats per minute.
--- NOTE | 2018-05-20 12:35 | Ultrasound Report ---
FINAL REPORT EXAM: US OB VELOCIMETRY UMBILCAL ART HISTORY: PPROM COMPARISON: None. TECHNIQUE: Duplex Doppler ultrasound of the umbilical arteries was performed for baby A. FINDINGS: There is a normal waveform of the umbilical arteries. The systolic to diastolic ratio average is 1.79. The resistive index average is 0.43. IMPRESSION: Normal waveform of the umbilical arteries for baby A.
--- NOTE | 2018-05-20 12:39 | Ultrasound Report ---
FINAL REPORT EXAM: US OB VELOCIMETRY UMBILCAL ART HISTORY: PPROM COMPARISON: None. TECHNIQUE: Duplex Doppler imaging of the umbilical arteries was performed for baby B. FINDINGS: heart rate is 156 beats per minute. There are normal waveforms of the umbilical arteries with a systolic to diastolic ratio average of 2.12. There is a stiff index average is 1.23. IMPRESSION: Normal exam of the umbilical arteries for baby B.
[2018-05-20 17:14] LABS: Hematocrit 25.4 % (30.3-42.9); Hemoglobin 8.3 gm/dl (10.1-14.3); Mean Corpuscular HGB Conc 33 % (30-34); Mean Corpuscular Hemoglobin 27 pg (28-32); Mean Corpuscular Volume 81 fl (79-97); Platelet Count 232 K/mm3 (140-440); Red Blood Count 3.13 M/mm3 (3.65-5.03); Red Cell Distribution Width 15.1 % (13.2-15.2)
[2018-05-20 17:54] LABS: Band Neutrophils # (Manual) 0.2 K/mm3; Basophils % (Manual) 0 % (0.0-1.8); Eosinophils % (Manual) 0 % (0.0-4.3); Myelocytes # (Manual) 0.1 K/mm3; Total Cells Counted 100
[2018-05-20 17:55] LABS: Anisocytosis 1+; Hypochromasia 1+
[2018-05-20 17:56] LABS: Giant Platelets Few; Large Platelets Few; Platelet Estimate Consistent w Auto; Poikilocytosis Few
--- NOTE | 2018-05-20 20:59 | Event Note ---
Date: 05/20/18 Patient called out stating she felt more water leaking and also that she was having more regular contractions. Called Dr. Conway for orders. Advised Dr. Conway of patient's complaint and contractions noted per monitor and small wet spot noted on towel. Dr. Conway ordered Procardia 10 mg po every 6 hours as needed. Nurse notified of this order and order put in.
[2018-05-20] MEDS: PROCARDIA*For Tocolysis only PO PRN (21:33)
[2018-05-20] MEDS: LACTATED RINGERS 1,000 ML IV SCH (22:14)
[2018-05-21] MEDS: TRIMOX PO SCH ×3 (03:41→22:12)
[2018-05-21] MEDS: TYLENOL PO PRN ×2 (03:41→18:36)
[2018-05-21] MEDS: FEOSOL PO SCH ×3 (07:57→20:00)
[2018-05-21] MEDS: PRENATAL VITAMIN PO SCH (10:19)
[2018-05-21] MEDS: ZITHROMAX PO SCH (10:19)
--- NOTE | 2018-05-21 11:12 | Progress Note ---
Assessment and Plan - Patient Problems (1) 27 weeks gestation of Current Visit: Yes Status: Acute (2) Dichorionic diamniotic twin in third trimester Current Visit: Yes Status: Acute (3) premature rupture of membranes (PPROM) with unknown onset of labor Current Visit: Yes Status: Acute Plan to address problem: Continue current management. CBC and BPP Q48 hrs. APA consult was done. Continous and toco monitoring. (4) Anemia Current Visit: Yes Status: Acute Qualifiers: Anemia type: iron deficiency Subjective - Subjective Date of service: 05/21/18 Principal diagnosis: Twins gestation at 27+4 weeks with PPROM Interval history: Patient is a 32 year old , LMP 11/08/17, EDC 08/15/18 at 27 weeks and 5 days with twin gestation who was admitted after she went to the office for a routine visit. She reported that she had been leaking fluids for 4 days prior to going to the office. She denied any contractions or bleeding. She did not go to the hospital to get checked after she started leaking. On exam in the office, there was pooling of clear fluid, cervix was 3-4 cm dilated. She was sent in for admission. tracing was CAT1 for both babies, toco showed no contractions. Magnesium sulfate for tocolysis and neuroprotection was given and discontinued 3 days ago, [facility] for FLM was completed, IV antibiotics prophylaxis was given. Bedside sonogram showed baby A to be VTX, EFW 949 gms, normal JOHN and baby B to be breech, EFW 953 gms, normal JOHN. BPP was 8/8 for both babies. NICU consult was done. APA consult was done. Agreed with current management. This AM, she denies any complaint. Patient reports: new complaints, loss of fluid, movement normal, no vaginal bleeding, no contractions Objective - Vital Signs Vital Signs: Vital Signs - 12hr 05/20/18 05/20/18 05/20/18 23:10 23:13 23:15 Temperature Pulse Rate 91 H 116 H 97 H Respiratory Rate Blood Pressure Blood Pressure [Right] O2 Sat by Pulse 98 92 100 Oximetry 05/20/18 05/20/18 05/20/18 23:20 23:25 23:30 Temperature Pulse Rate 102 H 99 H 97 H Respiratory Rate Blood Pressure Blood Pressure [Right] O2 Sat by Pulse 98 98 99 Oximetry 05/20/18 05/20/18 05/20/18 23:35 23:39 23:40 Temperature Pulse Rate 93 H 125 H Respiratory Rate Blood Pressure Blood Pressure [Right] O2 Sat by Pulse 99 60 L 97 Oximetry 05/20/18 05/20/18 05/20/18 23:45 23:47 23:48 Temperature 98.3 F Pulse Rate 89 Respiratory 18 Rate Blood Pressure Blood Pressure [Right] O2 Sat by Pulse 98 Oximetry 05/20/18 05/20/18 05/20/18 23:50 23:51 23:55 Temperature 98.3 F Pulse Rate 103 H 89 82 Respiratory 18 Rate Blood Pressure 108/52 Blood Pressure 108/52 [Right] O2 Sat by Pulse 99 98 Oximetry 05/21/18 05/21/18 05/21/18 00:00 00:05 00:10 Temperature Pulse Rate 83 106 H 88 Respiratory Rate Blood Pressure Blood Pressure [Right] O2 Sat by Pulse 98 100 97 Oximetry 05/21/18 05/21/18 05/21/18 00:15 00:20 00:25 Temperature Pulse Rate 78 84 83 Respiratory Rate Blood Pressure Blood Pressure [Right] O2 Sat by Pulse 100 100 99 Oximetry 05/21/18 05/21/18 05/21/18 00:30 00:35 00:40 Temperature Pulse Rate 81 92 H 89 Respiratory Rate Blood Pressure Blood Pressure [Right] O2 Sat by Pulse 97 97 98 Oximetry 05/21/18 05/21/18 05/21/18 00:42 00:45 00:50 Temperature Pulse Rate 76 97 H 85 Respiratory Rate Blood Pressure Blood Pressure [Right] O2 Sat by Pulse 67 L 98 97 Oximetry 05/21/18 05/21/18 05/21/18 00:55 01:00 01:03 Temperature Pulse Rate 84 86 97 H Respiratory Rate Blood Pressure Blood Pressure [Right] O2 Sat by Pulse 95 95 94 Oximetry 05/21/18 05/21/18 05/21/18 01:05 01:10 01:15 Temperature Pulse Rate 97 H 105 H 93 H Respiratory Rate Blood Pressure Blood Pressure [Right] O2 Sat by Pulse 95 96 98 Oximetry 05/21/18 05/21/18 05/21/18 01:20 01:25 01:30 Temperature Pulse Rate 87 88 94 H Respiratory Rate Blood Pressure Blood Pressure [Right] O2 Sat by Pulse 98 100 100 Oximetry 05/21/18 05/21/18 05/21/18 01:35 01:40 01:45 Temperature Pulse Rate 89 96 H 98 H Respiratory Rate Blood Pressure Blood Pressure [Right] O2 Sat by Pulse 100 100 100 Oximetry 05/21/18 05/21/18 05/21/18 01:50 01:55 02:00 Temperature Pulse Rate 96 H 95 H 94 H Respiratory Rate Blood Pressure Blood Pressure [Right] O2 Sat by Pulse 100 100 100 Oximetry 05/21/18 05/21/18 05/21/18 02:05 03:41 03:45 Temperature 98.3 F Pulse Rate 96 H 89 Respiratory 18 18 Rate Blood Pressure 101/58 Blood Pressure 101/58 [Right] O2 Sat by Pulse 100 98 Oximetry 05/21/18 05/21/18 05/21/18 08:42 08:44 08:45 Temperature 96.8 F L Pulse Rate 96 H 85 86 Respiratory 16 Rate Blood Pressure 113/57 Blood Pressure 113/57 [Right] O2 Sat by Pulse 98 98 Oximetry 05/21/18 05/21/18 05/21/18 08:50 08:55 09:00 Temperature Pulse Rate 95 H 86 86 Respiratory Rate Blood Pressure Blood Pressure [Right] O2 Sat by Pulse 96 98 98 Oximetry 05/21/18 05/21/18 05/21/18 09:05 09:10 09:15 Temperature Pulse Rate 83 91 H 91 H Respiratory Rate Blood Pressure Blood Pressure [Right] O2 Sat by Pulse 99 99 98 Oximetry 05/21/18 05/21/18 05/21/18 09:18 09:20 09:25 Temperature Pulse Rate 68 110 H 89 Respiratory Rate Blood Pressure Blood Pressure [Right] O2 Sat by Pulse 93 98 97 Oximetry 05/21/18 05/21/18 05/21/18 09:30 09:35 09:40 Temperature Pulse Rate 94 H 95 H 91 H Respiratory Rate Blood Pressure Blood Pressure [Right] O2 Sat by Pulse 96 98 94 Oximetry 05/21/18 05/21/18 05/21/18 09:45 09:48 09:50 Temperature Pulse Rate 76 92 H 85 Respiratory Rate Blood Pressure Blood Pressure [Right] O2 Sat by Pulse 94 94 95 Oximetry 05/21/18 05/21/18 05/21/18 09:54 09:55 10:00 Temperature Pulse Rate 97 H 95 H 76 Respiratory Rate Blood Pressure Blood Pressure [Right] O2 Sat by Pulse 94 95 96 Oximetry 05/21/18 05/21/18 05/21/18 10:03 10:05 10:09 Temperature Pulse Rate 96 H 84 95 H Respiratory Rate Blood Pressure Blood Pressure [Right] O2 Sat by Pulse 94 95 94 Oximetry 05/21/18 05/21/18 05/21/18 10:10 10:15 10:16 Temperature Pulse Rate 93 H 92 H 89 Respiratory Rate Blood Pressure Blood Pressure [Right] O2 Sat by Pulse 95 95 94 Oximetry 05/21/18 05/21/18 05/21/18 10:20 10:21 10:25 Temperature Pulse Rate 98 H 103 H 56 L Respiratory Rate Blood Pressure Blood Pressure [Right] O2 Sat by Pulse 96 90 96 Oximetry 05/21/18 05/21/18 05/21/18 10:30 10:35 10:40 Temperature Pulse Rate 97 H 103 H 92 H Respiratory Rate Blood Pressure Blood Pressure [Right] O2 Sat by Pulse 99 97 98 Oximetry 05/21/18 05/21/18 05/21/18 10:45 10:50 10:55 Temperature Pulse Rate 85 95 H 83 Respiratory Rate Blood Pressure Blood Pressure [Right] O2 Sat by Pulse 99 98 98 Oximetry 05/21/18 05/21/18 11:00 11:05 Temperature Pulse Rate 101 H 87 Respiratory Rate Blood Pressure Blood Pressure [Right] O2 Sat by Pulse 99 98 Oximetry - Exam Cardiovascular: Normal S1, Normal S2 Lungs: Clear to auscultation Vulva: both: normal FHR: category 1 Uterine Contraction Monitor Mode: External Uterine Contraction Pattern: Absent Deep Tendon Reflex Grade: Normal +2 - Labs Labs: Abnormal Labs 05/16/18 05/16/18 05/16/18 13:31 13:31 21:41 WBC RBC 3.56 L Hgb 9.4 L Hct 28.7 L MCH 26 L Lymph % (Auto) Seg Neutrophils % Seg Neuts % (Manual) 75.0 H Nucleated RBC % Seg Neutrophils # Sodium 134 L Potassium 3.4 L Carbon Dioxide 20 L BUN 3 L Creatinine 0.4 L Glucose 161 H POC Glucose Magnesium 4.30 H 05/17/18 05/17/18 05/17/18 02:34 12:44 19:57 WBC RBC Hgb Hct MCH Lymph % (Auto) Seg Neutrophils % Seg Neuts % (Manual) Nucleated RBC % Seg Neutrophils # Sodium Potassium Carbon Dioxide BUN Creatinine Glucose POC Glucose 225 H Magnesium 2.90 H 4.70 H 05/18/18 05/18/18 05/18/18 00:10 06:02 07:49 WBC RBC Hgb Hct MCH Lymph % (Auto) Seg Neutrophils % Seg Neuts % (Manual) Nucleated RBC % Seg Neutrophils # Sodium Potassium Carbon Dioxide BUN Creatinine Glucose POC Glucose 141 H Magnesium 4.60 H 4.70 H 05/18/18 05/18/18 05/18/18 09:13 12:26 12:30 WBC 13.0 H RBC 3.21 L Hgb 8.4 L Hct 25.7 L MCH 26 L Lymph % (Auto) 11.6 L Seg Neutrophils % 82.5 H Seg Neuts % (Manual) Nucleated RBC % Seg Neutrophils # 10.7 H Sodium Potassium Carbon Dioxide BUN Creatinine Glucose POC Glucose 125 H Magnesium 4.20 H 05/18/18 05/18/18 05/18/18 14:59 20:00 22:23 WBC RBC Hgb Hct MCH Lymph % (Auto) Seg Neutrophils % Seg Neuts % (Manual) Nucleated RBC % Seg Neutrophils # Sodium Potassium Carbon Dioxide BUN Creatinine Glucose POC Glucose 179 H 158 H 144 H Magnesium 05/19/18 05/20/18 23:41 16:50 WBC RBC 3.13 L Hgb 8.3 L Hct 25.4 L MCH 27 L Lymph % (Auto) Seg Neutrophils % Seg Neuts % (Manual) Nucleated RBC % 1.0 H Seg Neutrophils # Sodium Potassium Carbon Dioxide BUN Creatinine Glucose POC Glucose 141 H Magnesium Laboratory Results - last 24 hr 05/20/18 16:50 WBC 10.2 RBC 3.13 L Hgb 8.3 L Hct 25.4 L MCV 81 MCH 27 L MCHC 33 RDW 15.1 Plt Count 232 Add Manual Diff Complete Total Counted 100 Seg Neuts % (Manual) 67.0 Band Neutrophils % 2.0 Lymphocytes % (Manual) 22.0 Reactive Lymphs % (Man) 0 Monocytes % (Manual) 5.0 Eosinophils % (Manual) 0 Basophils % (Manual) 0 Metamyelocytes % 3.0 Myelocytes % 1.0 Promyelocytes % 0 Blast Cells % 0 Nucleated RBC % 1.0 H Seg Neutrophils # Man 6.8 Band Neutrophils # 0.2 Lymphocytes # (Manual) 2.2 Abs React Lymphs (Man) 0.0 Monocytes # (Manual) 0.5 Eosinophils # (Manual) 0.0 Basophils # (Manual) 0.0 Metamyelocytes # 0.3 Myelocytes # 0.1 Promyelocytes # 0.0 Blast Cells # 0.0 WBC Morphology Not Reportable Hypersegmented Neuts Not Reportable Hyposegmented Neuts Not Reportable Hypogranular Neuts Not Reportable Smudge Cells Not Reportable Toxic Granulation Not Reportable Toxic Vacuolation Not Reportable Dohle Bodies Not Reportable Pelger-Huet Anomaly Not Reportable Pillo Rods Not Reportable Platelet Estimate Consistent w auto Clumped Platelets Not Reportable Plt Clumps, EDTA Not Reportable Large Platelets Few Giant Platelets Few Platelet Satelliting Not Reportable Plt Morphology Comment Not Reportable RBC Morphology Not Reportable Dimorphic RBCs Not Reportable Polychromasia Few Hypochromasia 1+ Poikilocytosis Few Anisocytosis 1+ Microcytosis 1+ Macrocytosis Not Reportable Spherocytes Not Reportable Pappenheimer Bodies Not Reportable Sickle Cells Not Reportable Target Cells Not Reportable Tear Drop Cells Not Reportable Ovalocytes Not Reportable Helmet Cells Not Reportable [place]-Glide Bodies Not Reportable [place] Rings Not Reportable [place] Cells Not Reportable Bite Cells Not Reportable Crenated Cell Not Reportable Elliptocytes Not Reportable Acanthocytes (Spur) Not Reportable Rouleaux Not Reportable Hemoglobin C Crystals Not Reportable Schistocytes Not Reportable Malaria parasites Not Reportable Jl Bodies Not Reportable Hem Pathologist Commnt No - Results [place]- obstetric: report reviewed
[2018-05-22] MEDS: TRIMOX PO SCH ×3 (06:25→22:40)
[2018-05-22] MEDS: FEOSOL PO SCH ×3 (07:57→20:00)
[2018-05-22 08:04] LABS: Hematocrit 26.2 % (30.3-42.9); Hemoglobin 8.5 gm/dl (10.1-14.3); Mean Corpuscular HGB Conc 33 % (30-34); Mean Corpuscular Hemoglobin 27 pg (28-32); Mean Corpuscular Volume 82 fl (79-97); Platelet Count 232 K/mm3 (140-440); Red Cell Distribution Width 15.4 % (13.2-15.2)
[2018-05-22 08:49] LABS: Anisocytosis 1+; Band Neutrophils # (Manual) 0.2 K/mm3; Basophils % (Manual) 0 % (0.0-1.8); Monocytes % (Manual) 0 % (0.0-7.3); Myelocytes # (Manual) 0.1 K/mm3; Ovalocytes 1+; Stomatocytes Few; Tear Drop Cells Rare; Total Cells Counted 100
[2018-05-22] MEDS: ZITHROMAX PO SCH (10:09)
[2018-05-22] MEDS: PRENATAL VITAMIN PO SCH (10:10)
--- NOTE | 2018-05-22 10:22 | Progress Note ---
Assessment and Plan - Patient Problems (1) Gestational diabetes Current Visit: Yes Status: Acute Plan to address problem: Recommend following ADA diet. Postprandial blood glucose 140s however patient is refusing insulin. Will reiterate need tight glucose control to avoid complications, macrosomia. (2) premature rupture of membranes (PPROM) with unknown onset of labor Current Visit: Yes Status: Acute Plan to address problem: Re-evaluate JOHN of twin A an B with ultrasound today. s/p betametahsone s/p magnesium sulfate for neuroprotection s/p antibiotics to prolong latency Following with [facility] - recommended delivery at 34 weeks unless maternal or compromise. Patient aware. No signs of infection (3) Anemia Current Visit: Yes Status: Acute Qualifiers: Anemia type: iron deficiency Plan to address problem: Continue iron oral supplementation. Consider blood transfusion in light of twin delivery with anticipated increased blood loss. Subjective - Subjective Principal diagnosis: Twins gestation at 27+4 weeks with PPROM Interval history: 32yo multiparous female 27 6/7 weeks being followed with expectant management for PPROM of di-di twin gestation until 34 weeks. 1. PPROM - patient reports active movement of both twins. She states she has ongoing fluid loss, last episode yesterday. 2. GDM - refuses insulin. State she is controlling glucose through diet however she just at a piece of cake. She denies any vaginal bleeding. Patient reports: new complaints, loss of fluid, movement normal, no vaginal bleeding, no contractions Objective - Vital Signs Vital Signs: Vital Signs - 12hr 05/21/18 05/21/18 05/21/18 22:26 22:31 22:36 Temperature Pulse Rate 91 H 82 86 Respiratory Rate Blood Pressure O2 Sat by Pulse 98 99 100 Oximetry 05/21/18 05/21/18 05/21/18 22:41 22:46 22:51 Temperature Pulse Rate 89 83 84 Respiratory Rate Blood Pressure O2 Sat by Pulse 99 99 99 Oximetry 05/21/18 05/21/18 05/21/18 22:56 23:01 23:06 Temperature Pulse Rate 79 91 H 92 H Respiratory Rate Blood Pressure O2 Sat by Pulse 99 99 99 Oximetry 05/21/18 05/21/18 05/21/18 23:11 23:16 23:24 Temperature Pulse Rate 89 95 H 102 H Respiratory Rate Blood Pressure O2 Sat by Pulse 99 100 99 Oximetry 05/21/18 05/21/18 05/21/18 23:29 23:34 23:39 Temperature Pulse Rate 95 H 105 H 101 H Respiratory Rate Blood Pressure O2 Sat by Pulse 100 98 99 Oximetry 05/21/18 05/21/18 05/21/18 23:44 23:49 23:54 Temperature Pulse Rate 92 H 78 79 Respiratory Rate Blood Pressure O2 Sat by Pulse 99 95 96 Oximetry 05/21/18 05/21/18 05/22/18 23:55 23:59 00:04 Temperature Pulse Rate 82 77 80 Respiratory Rate Blood Pressure O2 Sat by Pulse 94 96 100 Oximetry 05/22/18 05/22/18 05/22/18 00:08 00:09 00:14 Temperature Pulse Rate 93 H 93 H 91 H Respiratory Rate Blood Pressure O2 Sat by Pulse 93 98 99 Oximetry 05/22/18 05/22/18 05/22/18 00:19 00:23 00:24 Temperature Pulse Rate 77 120 H 104 H Respiratory Rate Blood Pressure O2 Sat by Pulse 98 82 L 97 Oximetry 05/22/18 05/22/18 05/22/18 00:29 00:34 00:39 Temperature Pulse Rate 77 85 87 Respiratory Rate Blood Pressure O2 Sat by Pulse 98 96 95 Oximetry 05/22/18 05/22/18 05/22/18 00:44 00:49 00:54 Temperature Pulse Rate 83 81 92 H Respiratory Rate Blood Pressure O2 Sat by Pulse 96 95 97 Oximetry 05/22/18 05/22/18 05/22/18 00:57 00:59 01:04 Temperature Pulse Rate 81 109 H 92 H Respiratory Rate Blood Pressure O2 Sat by Pulse 94 100 98 Oximetry 05/22/18 05/22/18 05/22/18 01:09 01:13 01:14 Temperature 98.8 F Pulse Rate 85 83 89 Respiratory 18 Rate Blood Pressure 104/52 O2 Sat by Pulse 97 98 Oximetry 05/22/18 05/22/18 05/22/18 01:19 01:24 01:29 Temperature Pulse Rate 89 84 79 Respiratory Rate Blood Pressure O2 Sat by Pulse 97 98 97 Oximetry 05/22/18 05/22/18 05/22/18 01:34 01:39 01:41 Temperature Pulse Rate 94 H 86 68 Respiratory Rate Blood Pressure O2 Sat by Pulse 95 97 93 Oximetry 05/22/18 05/22/18 05/22/18 01:44 01:49 01:54 Temperature Pulse Rate 78 108 H 85 Respiratory Rate Blood Pressure O2 Sat by Pulse 90 94 94 Oximetry 05/22/18 05/22/18 05/22/18 01:59 02:04 02:09 Temperature Pulse Rate 78 80 79 Respiratory Rate Blood Pressure O2 Sat by Pulse 96 96 96 Oximetry 05/22/18 05/22/18 05/22/18 02:14 02:16 02:19 Temperature Pulse Rate 89 113 H 89 Respiratory Rate Blood Pressure O2 Sat by Pulse 96 91 99 Oximetry 05/22/18 05/22/18 05/22/18 02:24 02:29 02:34 Temperature Pulse Rate 93 H 85 82 Respiratory Rate Blood Pressure O2 Sat by Pulse 99 97 97 Oximetry 05/22/18 05/22/18 05/22/18 02:39 02:44 02:49 Temperature Pulse Rate 83 93 H 77 Respiratory Rate Blood Pressure O2 Sat by Pulse 99 99 98 Oximetry 05/22/18 05/22/18 05/22/18 02:54 02:59 03:04 Temperature Pulse Rate 79 74 75 Respiratory Rate Blood Pressure O2 Sat by Pulse 98 98 98 Oximetry 05/22/18 05/22/18 05/22/18 03:09 03:14 03:19 Temperature Pulse Rate 75 74 86 Respiratory Rate Blood Pressure O2 Sat by Pulse 98 98 97 Oximetry 05/22/18 05/22/18 05/22/18 03:24 03:29 03:34 Temperature Pulse Rate 104 H 82 82 Respiratory Rate Blood Pressure O2 Sat by Pulse 99 97 96 Oximetry 05/22/18 05/22/18 05/22/18 03:39 03:44 03:49 Temperature Pulse Rate 83 95 H 82 Respiratory Rate Blood Pressure O2 Sat by Pulse 96 98 96 Oximetry 05/22/18 05/22/18 05/22/18 03:54 03:59 04:01 Temperature Pulse Rate 77 89 86 Respiratory Rate Blood Pressure O2 Sat by Pulse 96 95 92 Oximetry 05/22/18 05/22/18 05/22/18 04:04 04:06 04:09 Temperature Pulse Rate 103 H 94 H 103 H Respiratory Rate Blood Pressure O2 Sat by Pulse 92 94 95 Oximetry 05/22/18 05/22/18 05/22/18 04:12 04:14 04:19 Temperature Pulse Rate 82 98 H 84 Respiratory Rate Blood Pressure O2 Sat by Pulse 93 97 95 Oximetry 05/22/18 05/22/18 05/22/18 04:24 04:29 04:34 Temperature Pulse Rate 85 88 86 Respiratory Rate Blood Pressure O2 Sat by Pulse 95 95 95 Oximetry 05/22/18 05/22/18 05/22/18 04:39 04:40 04:44 Temperature Pulse Rate 84 79 82 Respiratory Rate Blood Pressure O2 Sat by Pulse 95 94 96 Oximetry 05/22/18 05/22/18 05/22/18 04:49 04:54 04:59 Temperature Pulse Rate 85 84 87 Respiratory Rate Blood Pressure O2 Sat by Pulse 96 96 96 Oximetry 05/22/18 05/22/18 05/22/18 05:04 05:09 05:14 Temperature Pulse Rate 79 86 80 Respiratory Rate Blood Pressure O2 Sat by Pulse 97 97 96 Oximetry 05/22/18 05/22/18 05/22/18 05:19 05:24 05:28 Temperature Pulse Rate 83 90 86 Respiratory Rate Blood Pressure O2 Sat by Pulse 97 95 94 Oximetry 05/22/18 05/22/18 05/22/18 05:29 05:34 05:39 Temperature Pulse Rate 89 94 H 101 H Respiratory Rate Blood Pressure O2 Sat by Pulse 97 96 98 Oximetry 05/22/18 05/22/18 05/22/18 05:44 05:49 05:54 Temperature Pulse Rate 89 87 78 Respiratory Rate Blood Pressure O2 Sat by Pulse 97 97 97 Oximetry 05/22/18 05/22/18 05/22/18 05:59 06:04 06:09 Temperature Pulse Rate 71 88 99 H Respiratory Rate Blood Pressure O2 Sat by Pulse 96 99 99 Oximetry 05/22/18 05/22/18 05/22/18 06:17 06:22 06:27 Temperature Pulse Rate 85 74 79 Respiratory Rate Blood Pressure O2 Sat by Pulse 100 100 100 Oximetry 05/22/18 05/22/18 05/22/18 06:32 06:37 06:42 Temperature Pulse Rate 74 66 73 Respiratory Rate Blood Pressure O2 Sat by Pulse 100 100 100 Oximetry 05/22/18 05/22/18 05/22/18 06:47 06:52 06:57 Temperature Pulse Rate 78 78 75 Respiratory Rate Blood Pressure O2 Sat by Pulse 100 100 98 Oximetry 05/22/18 05/22/18 05/22/18 07:02 07:04 07:07 Temperature Pulse Rate 104 H 107 H 80 Respiratory Rate Blood Pressure O2 Sat by Pulse 99 92 100 Oximetry 05/22/18 05/22/18 05/22/18 07:12 07:17 07:22 Temperature Pulse Rate 91 H 74 87 Respiratory Rate Blood Pressure O2 Sat by Pulse 99 100 100 Oximetry 05/22/18 05/22/18 05/22/18 07:27 07:32 07:37 Temperature Pulse Rate 73 80 89 Respiratory Rate Blood Pressure O2 Sat by Pulse 100 99 97 Oximetry 05/22/18 05/22/18 05/22/18 07:42 07:47 07:52 Temperature Pulse Rate 78 79 85 Respiratory Rate Blood Pressure O2 Sat by Pulse 100 100 99 Oximetry 05/22/18 05/22/18 05/22/18 07:57 08:02 08:07 Temperature Pulse Rate 76 84 78 Respiratory Rate Blood Pressure O2 Sat by Pulse 98 99 98 Oximetry 05/22/18 05/22/18 05/22/18 08:12 08:13 08:17 Temperature Pulse Rate 111 H 114 H 74 Respiratory Rate Blood Pressure O2 Sat by Pulse 98 77 L 98 Oximetry 05/22/18 05/22/18 05/22/18 08:22 08:25 08:27 Temperature Pulse Rate 79 85 88 Respiratory Rate Blood Pressure O2 Sat by Pulse 95 94 95 Oximetry 05/22/18 05/22/18 05/22/18 08:32 08:37 08:42 Temperature Pulse Rate 80 84 80 Respiratory Rate Blood Pressure O2 Sat by Pulse 94 97 95 Oximetry 05/22/18 05/22/18 05/22/18 08:43 08:47 08:52 Temperature Pulse Rate 86 86 81 Respiratory Rate Blood Pressure O2 Sat by Pulse 94 95 96 Oximetry 05/22/18 05/22/18 05/22/18 08:57 09:02 09:07 Temperature Pulse Rate 78 109 H 111 H Respiratory Rate Blood Pressure O2 Sat by Pulse 96 98 100 Oximetry 05/22/18 05/22/18 05/22/18 09:12 09:17 09:22 Temperature Pulse Rate 81 84 83 Respiratory Rate Blood Pressure O2 Sat by Pulse 100 99 98 Oximetry 05/22/18 05/22/18 05/22/18 09:27 09:32 09:37 Temperature Pulse Rate 86 83 98 H Respiratory Rate Blood Pressure O2 Sat by Pulse 98 97 97 Oximetry 05/22/18 05/22/18 05/22/18 09:42 09:47 09:52 Temperature Pulse Rate 90 85 98 H Respiratory Rate Blood Pressure O2 Sat by Pulse 98 97 99 Oximetry 05/22/18 05/22/18 05/22/18 09:57 10:02 10:07 Temperature Pulse Rate 92 H 97 H 99 H Respiratory Rate Blood Pressure O2 Sat by Pulse 98 99 99 Oximetry - Exam FHR: auscultation normal, other (Twin A 150s Twin B 150s) - Labs Labs: Abnormal Labs 05/16/18 05/16/18 05/16/18 13:31 13:31 21:41 WBC RBC 3.56 L Hgb 9.4 L Hct 28.7 L MCH 26 L RDW Lymph % (Auto) Seg Neutrophils % Seg Neuts % (Manual) 75.0 H Nucleated RBC % Seg Neutrophils # Sodium 134 L Potassium 3.4 L Carbon Dioxide 20 L BUN 3 L Creatinine 0.4 L Glucose 161 H POC Glucose Hemoglobin A1c Magnesium 4.30 H 05/17/18 05/17/18 05/17/18 02:34 12:44 19:57 WBC RBC Hgb Hct MCH RDW Lymph % (Auto) Seg Neutrophils % Seg Neuts % (Manual) Nucleated RBC % Seg Neutrophils # Sodium Potassium Carbon Dioxide BUN Creatinine Glucose POC Glucose 225 H Hemoglobin A1c Magnesium 2.90 H 4.70 H 05/18/18 05/18/18 05/18/18 00:10 06:02 07:49 WBC RBC Hgb Hct MCH RDW Lymph % (Auto) Seg Neutrophils % Seg Neuts % (Manual) Nucleated RBC % Seg Neutrophils # Sodium Potassium Carbon Dioxide BUN Creatinine Glucose POC Glucose 141 H Hemoglobin A1c Magnesium 4.60 H 4.70 H 05/18/18 05/18/18 05/18/18 09:13 12:26 12:30 WBC 13.0 H RBC 3.21 L Hgb 8.4 L Hct 25.7 L MCH 26 L RDW Lymph % (Auto) 11.6 L Seg Neutrophils % 82.5 H Seg Neuts % (Manual) Nucleated RBC % Seg Neutrophils # 10.7 H Sodium Potassium Carbon Dioxide BUN Creatinine Glucose POC Glucose 125 H Hemoglobin A1c Magnesium 4.20 H 0905/18/18 05/18/18 14:59 20:00 22:23 WBC RBC Hgb Hct MCH RDW Lymph % (Auto) Seg Neutrophils % Seg Neuts % (Manual) Nucleated RBC % Seg Neutrophils # Sodium Potassium Carbon Dioxide BUN Creatinine Glucose POC Glucose 179 H 158 H 144 H Hemoglobin A1c Magnesium 05/19/18 05/20/18 05/21/18 23:41 16:50 11:54 WBC RBC 3.13 L Hgb 8.3 L Hct 25.4 L MCH 27 L RDW Lymph % (Auto) Seg Neutrophils % Seg Neuts % (Manual) Nucleated RBC % 1.0 H Seg Neutrophils # Sodium Potassium Carbon Dioxide BUN Creatinine Glucose POC Glucose 141 H 146 H Hemoglobin A1c Magnesium 05/21/18 05/22/18 05/22/18 18:27 06:46 06:46 WBC RBC 3.20 L Hgb 8.5 L Hct 26.2 L MCH 27 L RDW 15.4 H Lymph % (Auto) Seg Neutrophils % Seg Neuts % (Manual) Nucleated RBC % Seg Neutrophils # Sodium Potassium Carbon Dioxide BUN Creatinine Glucose POC Glucose 149 H Hemoglobin A1c 6.6 H Magnesium Laboratory Results - last 24 hr 05/21/18 05/21/18 05/22/18 11:54 18:27 06:46 WBC 10.5 RBC 3.20 L Hgb 8.5 L Hct 26.2 L MCV 82 MCH 27 L MCHC 33 RDW 15.4 H Plt Count 232 Add Manual Diff Complete Total Counted 100 Seg Neuts % (Manual) 63.0 Band Neutrophils % 2.0 Lymphocytes % (Manual) 26.0 Reactive Lymphs % (Man) 0 Monocytes % (Manual) 0 Eosinophils % (Manual) 2.0 Basophils % (Manual) 0 Metamyelocytes % 6.0 Myelocytes % 1.0 Promyelocytes % 0 Blast Cells % 0 Nucleated RBC % Not Reportable Seg Neutrophils # Man 6.6 Band Neutrophils # 0.2 Lymphocytes # (Manual) 2.7 Abs React Lymphs (Man) 0.0 Monocytes # (Manual) 0.0 Eosinophils # (Manual) 0.2 Basophils # (Manual) 0.0 Metamyelocytes # 0.6 Myelocytes # 0.1 Promyelocytes # 0.0 Blast Cells # 0.0 WBC Morphology Not Reportable Hypersegmented Neuts Not Reportable Hyposegmented Neuts Not Reportable Hypogranular Neuts Not Reportable Smudge Cells Not Reportable Toxic Granulation Not Reportable Toxic Vacuolation Not Reportable Dohle Bodies Not Reportable Pelger-Huet Anomaly Not Reportable Pillo Rods Not Reportable Platelet Estimate Appears normal Clumped Platelets Not Reportable Plt Clumps, EDTA Not Reportable Large Platelets Not Reportable Giant Platelets Not Reportable Platelet Satelliting Not Reportable Plt Morphology Comment Not Reportable RBC Morphology Not Reportable Dimorphic RBCs Not Reportable Polychromasia 1+ Hypochromasia Not Reportable Poikilocytosis Not Reportable Anisocytosis 1+ Microcytosis 1+ Macrocytosis Not Reportable Spherocytes Not Reportable Pappenheimer Bodies Not Reportable Sickle Cells Not Reportable Target Cells Not Reportable Tear Drop Cells Rare Ovalocytes 1+ Stomatocytes Few Helmet Cells Not Reportable Valencia-Sulphur Bodies Not Reportable Crane Rings Not Reportable [place] Cells Not Reportable Bite Cells Not Reportable Crenated Cell Not Reportable Elliptocytes Few Acanthocytes (Spur) Not Reportable Rouleaux Not Reportable Hemoglobin C Crystals Not Reportable Schistocytes Not Reportable Malaria parasites Not Reportable Jl Bodies Not Reportable Hem Pathologist Commnt No POC Glucose 146 H 149 H Hemoglobin A1c 05/22/18 06:46 WBC RBC Hgb Hct MCV MCH MCHC RDW Plt Count Add Manual Diff Total Counted Seg Neuts % (Manual) Band Neutrophils % Lymphocytes % (Manual) Reactive Lymphs % (Man) Monocytes % (Manual) Eosinophils % (Manual) Basophils % (Manual) Metamyelocytes % Myelocytes % Promyelocytes % Blast Cells % Nucleated RBC % Seg Neutrophils # Man Band Neutrophils # Lymphocytes # (Manual) Abs React Lymphs (Man) Monocytes # (Manual) Eosinophils # (Manual) Basophils # (Manual) Metamyelocytes # Myelocytes # Promyelocytes # Blast Cells # WBC Morphology Hypersegmented Neuts Hyposegmented Neuts Hypogranular Neuts Smudge Cells Toxic Granulation Toxic Vacuolation Dohle Bodies Pelger-Huet Anomaly Pillo Rods Platelet Estimate Clumped Platelets Plt Clumps, EDTA Large Platelets Giant Platelets Platelet Satelliting Plt Morphology Comment RBC Morphology Dimorphic RBCs Polychromasia Hypochromasia Poikilocytosis Anisocytosis Microcytosis Macrocytosis Spherocytes Pappenheimer Bodies Sickle Cells Target Cells Tear Drop Cells Ovalocytes Stomatocytes Helmet Cells Valencia-Sulphur Bodies Crane Rings Denver Cells Bite Cells Crenated Cell Elliptocytes Acanthocytes (Spur) Rouleaux Hemoglobin C Crystals Schistocytes Malaria parasites Jl Bodies Hem Pathologist Commnt POC Glucose Hemoglobin A1c 6.6 H
--- NOTE | 2018-05-22 12:43 | Consultation ---
History of Present Illness Reason for consult: other ((Patient is a 32 year old , LMP 11/08/17, EDC 08/15/18 at 27 weeks and 6 day gestation Followed by [facility] for DI/DI twin gestation , Twin A with IUGR ( last [facility] EFW @ 7% ) , resolved Polyhydramnios for Twin A and Twin B who was admitted 05/16/18 after she went to the office for a routine visit. She reported that she had been leaking fluids for 4 days which was 05/12/18. She denied any contractions or bleeding. She did not go to the hospital to get checked. She presented from [facility] OB office pooling of clear fluid, cervix was 3-4 cm dilated. She was sent in for admission. Twin tracing was CAT1 for 27 weeks gestation , toco showed no contractions. S/P magnesium sulfate for tocolysis and neuroprotection , S/P Celestone for FLM, antibiotics prophylaxis. 05/16/18 Bedside sonogram revealed Twin A to be VTX, EFW 949 gms, MVP of 1.3 cm BPP for Twin A 6/8 and Twin B to be breech, EFW 953 gms, normal JOHN. BPP was 8/8 for Twin B.) [facility] Twin A BPP 8/8 with MVP of 2.7 cm with reassuring [facility] doppler and Twin B MVP 6. 3 cm BPP 8/8 with normal [facility] doppler Today patient reports no LOF, denies ctx, VB, and contractions ) Past History Past Medical History: no pertinent history Past Surgical History: [employer]/uterine surgery (status post salpingectomy for ectopic ?laparoscopic) [employer] History: denies: chlamydia, gonorrhea, hepatitis B, hepatitis C, herpes, HIV , syphilis, trichomonas - Obstetrical History : 6 Medications and Allergies Allergies Allergy/AdvReac Type Severity Reaction Status Date / Time aspirin Allergy Vomiting Verified 06/11/14 08:12 Home Medications Medication Instructions Recorded Confirmed Last Taken Type No Known Home Medications [No 05/13/18 05/17/18 Unknown History Reported Home Medications] Active Meds: Active Medications Acetaminophen (Tylenol) 650 mg PO Q4H PRN PRN Reason: Pain MILD(1-3)/Fever >100.5/ORTEGA Last Admin: 05/21/18 18:36 Dose: 650 mg Amoxicillin (Trimox) 250 mg PO Q8HR [facility]; Protocol Stop: 05/23/18 13:04 Last Admin: 05/22/18 06:25 Dose: 250 mg Azithromycin (Zithromax) 250 mg PO QDAY [facility] Last Admin: 05/22/18 10:09 Dose: 250 mg Docusate Sodium (Colace) 100 mg PO Q12H PRN PRN Reason: Constipation Ferrous Sulfate (Feosol) 325 mg PO TID [facility] Last Admin: 05/22/18 07:57 Dose: Not Given Guaifenesin (Guaifenesin Dm Syrup) 10 ml PO Q6H PRN PRN Reason: Cough Dextrose/Lactated Ringer's (D5lr) 1,000 mls @ 125 mls/hr IV DIRECT ARNOL Lactated Ringer's (Lactated Ringers) 1,000 mls @ 125 mls/hr IV DIRECT ARNOL Last Admin: 05/20/18 22:14 Dose: 75 mls/hr Multivitamins/Iron/Calcium ( Vitamin) 1 each PO QDAY [facility] Last Admin: 05/22/18 10:10 Dose: Not Given Nifedipine (Procardia*For Tocolysis Only*) 10 mg PO Q6HR PRN PRN Reason: Premature Labor Last Admin: 05/20/18 21:33 Dose: 10 mg Ondansetron HCl (Zofran) 4 mg IV Q6H PRN PRN Reason: Nausea And Vomiting Senna/Docusate Sodium (Senokot S) 2 tab PO Q12H PRN PRN Reason: Laxative Effect Simethicone (Mylicon) 80 mg PO Q6H PRN PRN Reason: Gas pain Review of Systems Constitutional: no fever, no chills Eyes: deferred Ears, nose, mouth and throat: no headache Cardiovascular: edema (trace ), no rapid/irregular heart beat, no syncope, no high blood pressure Respiratory: no shortness of breath Gastrointestinal: no nausea, no vomiting Genitourinary: leakage of fluid (none during consult ), no vaginal bleeding, no vaginal discharge, no dysuria, no pelvic pain, no contractions Endocrine: high blood sugars (PP of 140's ( however pt was consuming cake fruit and juice )), recent glucocorticoid use (S/P BMZ), other (Recent dx of GDM ), no polyuria - Vital Signs Vital signs: Vital Signs Temp Pulse Resp BP Pulse Ox 99.0 F 110 H 16 118/62 95 05/16/18 13:14 05/16/18 13:14 05/16/18 13:14 05/16/18 13:14 05/16/18 13:14 Temp Pulse Resp BP Pulse Ox 98.8 F 91 H 18 123/66 99 05/22/18 01:13 05/22/18 11:04 05/22/18 01:13 05/22/18 11:04 05/22/18 10:07 - Physical Exam Breasts: Positive: deferred Cardiovascular: Regular rate Lungs: Positive: Normal air movement Abdomen: Negative: tenderness, guarding Uterus: Positive: other (gravid). Negative: tender Deep Tendon Reflex Grade: Normal +2 - Obstetrical FHR: category 1 (for 27 plus weeks ) Uterine Contraction Monitor Mode: External Uterine Contraction Pattern: Absent Results Result Diagrams: 05/22/18 06:46 05/16/18 13:31 Abnormal lab results 05/21/18 05/22/18 05/22/18 Range/Units 18:27 06:46 06:46 RBC 3.20 L (3.65-5.03) M/mm3 Hgb 8.5 L (10.1-14.3) gm/dl Hct 26.2 L (30.3-42.9) % MCH 27 L (28-32) pg RDW 15.4 H (13.2-15.2) % POC Glucose 149 H (70-105) Hemoglobin A1c 6.6 H (4-6) % All other labs normal. Assessment and Plan A) - TIUP @ 27.6 weeks - DI/DI twin gestation - Previous [facility] assessment Twin A with IUGR Twin A and Twin B with Polyhydramnios - PPROM from 05/12/18 however patient presented for evaluation on 05/16/18 - No ctx noted on monitoring - ABX as protocol - Reported advanced cervical dilation of 3-4 cm - Twin A VTX presentation with improved MVP of 2.7 cm ( 05/20/18 assessment) - Twin A BPP of 8/8 with reassuring [facility] doppler - Twin A with reassuring growth assessment last EFW @ 22% - Twin B in VTX presentation with reassuring MVP of 6.3 - Twin B growth asssessment last EFW @ 23% - Twin B BPP 04/12 with reassuring [facility] doppler - Anemia with Hgb of 8.5 mg - History of GDM - Recent dx of GDM ( 05/16/18) 1 GTT of 211 mg ] - Elevated glycemic levels PP of 140's ( may me due to dietary consumptions ie cake fruits and juices - Elevated HgbA1C of 6.6% - OB previously reports patient declining sliding scale insulin recommendation - S/P BMZ for FLM - S/P MgSO4 for neuroprotection - NO sxs of chorio - Stable WBC - S/P NICU consult P) - In agreement with in patient management - Treat anemia - Weekly CBC - FBS and PP ( Treat BS accordingly if patient refuses treatment- advised to sign medical refusal ) - Due to twin gestation 2400- 2500 ADA diet to include bedtime snacks - Continous monitoring - Twice weekly BPP for Twin A and Twin B ( MVP to documented ) - Twin growth assessment Q 2 weeks - Delivery with sxs of chorio , twin compromise or maternal compromise - Delivery at 34 weeks with no compromise - Convert ABX from IVB to PO regimen - With no change in twin or maternal assessment / no compromise weekly [facility] assessment
--- NOTE | 2018-05-22 19:30 | Event Note ---
Called by charge nurse, [place], due to maternal request to be discharged. I was transferred to patient's room and spoke with her via phone. She states she spoke with her insurance company, [employer], because she desires to be discharged and has been in the hospital for over a week. She states [employer] states she can be discharged home with a domestic technician to monitor her status with the approval of a physician. I explained to the patient I recommend that she remain hospitalized for the following reasons: 1. Premature rupture of membranes Rupture of membranes (ROM) -Due to rupture of membranes twin A, she is at risk of chorioamnionitis and subsequent endometritis. She is s/p antibiotics to prolong latency but at high risk of delivery within the next several days. Chorioamnionitis is a risk factor for hypoxia and hemorrhage which are better managed inpatient. Prematurity -Complications of prematurity including but not limited to respiratory distress , intraventricular hemorrhage, necrotizing enterocolitus, transient tachypnea of the are all better managed in the ICU. A home delivery, which she is at risk of if discharged home, would impede the access to the intensive care unit necessary to treat these potential complications. The twins are at risk of if discharged home without continuous monitoring allowing evaluation of status due to ruptured membranes in a . 2. Unstable lie -Twin B was breech on presentation and is now vertex. The lie is unstable and access to the operating room to deliver a twin in malpresentation is not possible at home. Emergency transport to the hospital from home in time can not be guaranteed in time to deliver a breech infant safely. 3. Uncontrolled gestational diabetes mellitus -Although the patient has not been compliant with taking insulin as prescribed, inpatient hospitalization has allowed for monitoring her blood sugars which range in the 140s. The twins are a high risk of hypoglycemia post-delivery due to uncontrolled blood sugars. Access to ICU during inpatient hospitalization allows for access to the NICU if the twins require treatment of complications of infants born to diabetic mothers.
--- NOTE | 2018-05-22 20:44 | Event Note ---
After further discussion with patient and spouse. They have decided not to leave against medical advice. The following parameters were discussed to accommodate mother during her stay. 1. Allow patient one hour daily (between 10am-3pm) for seated shower and/or to be transported via wheelchair on L&D by nurse or spouse. 2. Allow quiet hours 10pm-5am (no vitals, prn monitoring). 3. Obtain NST between 9pm-10pm nightly. Restart continuous monitoring at 5am. 4. Patient is to report any loss of fluid or changes in movement. Call MD if changes in maternal of status.
--- NOTE | 2018-05-23 02:53 | Ultrasound Report ---
FINAL REPORT EXAM: US OB BPP WO NON-STRESS HISTORY: well being twin A and B TECHNIQUE: A limited OB sonogram was obtained for evaluation of the biophysical profile for twin A. FINDINGS: For breathing movements, a score of 2 out of 2 was obtained. For movements, a score of 2 out of 2 was obtained. For posture in tone, a score of 2 out of 2 was obtained. For qualitative amniotic fluid volume, a score of 2 out of 2 was obtained. The total biophysical profile score for twin a is 8 out of 8. The heart rate is 160 BPM. IMPRESSION: Biophysical profile score 8 out of 8 for twin A. The heart rate is 160 BPM.
--- NOTE | 2018-05-23 03:29 | Ultrasound Report ---
FINAL REPORT EXAM: US OB BPP EA ADD EXAM HISTORY: TWINS PREPROM TECHNIQUE: A limited OB sonogram was obtained for the biophysical profile of twin B. FINDINGS: For breathing movements, a score of 2 out of 2 was obtained. For movements, a score of 2 out of 2 was obtained. For posture in tone, a score of 2 out of 2 was obtained. For qualitative amniotic fluid volume, a score of 2 out of 2 was obtained. The total biophysical profile score is 8 out of 8. The heart rate is 156 BPM. IMPRESSION: Biophysical profile score of 8 out of 8 for twin B. The heart rate is 156 BPM.
--- NOTE | 2018-05-23 03:32 | Ultrasound Report ---
FINAL REPORT EXAM: US OB LIMITED HISTORY: Measure JOHN twin A and B, biophysical profile A/B TECHNIQUE: A limited OB sonogram was obtained for evaluation of amniotic fluid volume. FINDINGS: There is a twin . For twin B, the fetus is in cephalic presentation. The largest amniotic fluid pocket is 4.5 cm. The heart is 158 BPM. For twin a, the fetus is in cephalic presentation. The largest amniotic fluid pocket is 2 cm. The heart is 153 BPM. IMPRESSION: Twin with amniotic fluid pocket as described.
[2018-05-23] MEDS: TRIMOX PO SCH (05:39)
[2018-05-23] MEDS: TYLENOL PO PRN ×3 (05:57→22:13)
--- NOTE | 2018-05-23 08:33 | Progress Note ---
Assessment and Plan A: 32-year-old at 28 weeks with Di Di Twins s/p PPROM baby A -No contractions -No signs or symptoms of chorio -Patient refusing continuous monitoring Issues -Baby A cephalic/Baby B unstable lie -s/p Growth on 05/16/18 --> Twin A EFW 949 gms, MVP of 1.3 cm and Twin B to be breech, EFW 953 gms, -s/p BPP on 05/22/18 --> Twin A 04/12 and Twin B 04/12 -s/p BMZ course on 05/17/18 -s/p Mag on 05/19/18 -On latency antibitiocs - will D/C tomorrow 05/24/18 -GDM - Patient refusing insulin. Wants to try diet control for now -Cervix ~ 3-4 cm -Patient desires vaginal delivery and conversion of twin B if possible. Discussed associated risks with patient in detail P: -Patient refusing continuous monitoring and threatening to leave AMA if demands not met. I have called [facility] office this morning and asked that Dr. Ramirez call to discuss above. -Will honor Dr. Boyle agreement with the patient for now. -Need saline lock and Type and screen today -BPP 2 x weekly -Growth every 2 weeks -Discussed the importance of continuous monitoring with the patient -Expectant management until 34 wks - Patient Problems (1) 27 weeks gestation of Current Visit: Yes Status: Acute (2) Dichorionic diamniotic twin in third trimester Current Visit: Yes Status: Acute (3) premature rupture of membranes (PPROM) with unknown onset of labor Current Visit: Yes Status: Acute Subjective - Subjective Date of service: 05/23/18 Principal diagnosis: Twins gestation at 28 weeks with PPROM Interval history: Patient seen and examined, stable. No fever or chills, no abdominal pain, + mvt. Patient continues to decline insulin, she wants to try diet controlled for now. Patient apparently now refusing continuous monitoring, is threatening to leave AMA if her conditions are not met. She is status post magnesium, Celestone and Indocin She has no fever or chills, no vaginal discharge or VB, no abdominal tenderness +FM Patient reports: new complaints, loss of fluid, movement normal, no vaginal bleeding, no contractions Objective - Vital Signs Vital Signs: Vital Signs - 12hr 05/22/18 05/22/18 05/23/18 22:47 22:48 05:50 Temperature 98 F 98.1 F Pulse Rate 86 Respiratory 20 18 Rate Blood Pressure 113/56 05/23/18 05/23/18 05:51 08:09 Temperature Pulse Rate 74 95 H Respiratory Rate Blood Pressure 114/69 109/74 - Exam Abdomen: Present: normal appearance, soft. Absent: distention, tenderness, guarding, rigidity FHR: category 1 (NST this AM) Cervical Dilatation: 3.5 - Labs Labs: Abnormal Labs 05/16/18 05/16/18 05/16/18 13:31 13:31 21:41 WBC RBC 3.56 L Hgb 9.4 L Hct 28.7 L MCH 26 L RDW Lymph % (Auto) Seg Neutrophils % Seg Neuts % (Manual) 75.0 H Nucleated RBC % Seg Neutrophils # Sodium 134 L Potassium 3.4 L Carbon Dioxide 20 L BUN 3 L Creatinine 0.4 L Glucose 161 H POC Glucose Hemoglobin A1c Magnesium 4.30 H 05/17/18 05/17/18 05/17/18 02:34 12:44 19:57 WBC RBC Hgb Hct MCH RDW Lymph % (Auto) Seg Neutrophils % Seg Neuts % (Manual) Nucleated RBC % Seg Neutrophils # Sodium Potassium Carbon Dioxide BUN Creatinine Glucose POC Glucose 225 H Hemoglobin A1c Magnesium 2.90 H 4.70 H 05/18/18 05/18/18 05/18/18 00:10 06:02 07:49 WBC RBC Hgb Hct MCH RDW Lymph % (Auto) Seg Neutrophils % Seg Neuts % (Manual) Nucleated RBC % Seg Neutrophils # Sodium Potassium Carbon Dioxide BUN Creatinine Glucose POC Glucose 141 H Hemoglobin A1c Magnesium 4.60 H 4.70 H 05/18/18 05/18/18 05/18/18 09:13 12:26 12:30 WBC 13.0 H RBC 3.21 L Hgb 8.4 L Hct 25.7 L MCH 26 L RDW Lymph % (Auto) 11.6 L Seg Neutrophils % 82.5 H Seg Neuts % (Manual) Nucleated RBC % Seg Neutrophils # 10.7 H Sodium Potassium Carbon Dioxide BUN Creatinine Glucose POC Glucose 125 H Hemoglobin A1c Magnesium 4.20 H 05/18/18 05/18/18 05/18/18 14:59 20:00 22:23 WBC RBC Hgb Hct MCH RDW Lymph % (Auto) Seg Neutrophils % Seg Neuts % (Manual) Nucleated RBC % Seg Neutrophils # Sodium Potassium Carbon Dioxide BUN Creatinine Glucose POC Glucose 179 H 158 H 144 H Hemoglobin A1c Magnesium 05/19/18 05/20/18 05/21/18 23:41 16:50 11:54 WBC RBC 3.13 L Hgb 8.3 L Hct 25.4 L MCH 27 L RDW Lymph % (Auto) Seg Neutrophils % Seg Neuts % (Manual) Nucleated RBC % 1.0 H Seg Neutrophils # Sodium Potassium Carbon Dioxide BUN Creatinine Glucose POC Glucose 141 H 146 H Hemoglobin A1c Magnesium 05/21/18 05/22/18 05/22/18 18:27 06:46 06:46 WBC RBC 3.20 L Hgb 8.5 L Hct 26.2 L MCH 27 L RDW 15.4 H Lymph % (Auto) Seg Neutrophils % Seg Neuts % (Manual) Nucleated RBC % Seg Neutrophils # Sodium Potassium Carbon Dioxide BUN Creatinine Glucose POC Glucose 149 H Hemoglobin A1c 6.6 H Magnesium 05/22/18 14:34 WBC RBC Hgb Hct MCH RDW Lymph % (Auto) Seg Neutrophils % Seg Neuts % (Manual) Nucleated RBC % Seg Neutrophils # Sodium Potassium Carbon Dioxide BUN Creatinine Glucose POC Glucose 166 H Hemoglobin A1c Magnesium Laboratory Results - last 24 hr 05/22/18 05/22/18 05/22/18 06:46 11:02 14:34 Add Manual Diff Complete Total Counted 100 Seg Neuts % (Manual) 63.0 Band Neutrophils % 2.0 Lymphocytes % (Manual) 26.0 Reactive Lymphs % (Man) 0 Monocytes % (Manual) 0 Eosinophils % (Manual) 2.0 Basophils % (Manual) 0 Metamyelocytes % 6.0 Myelocytes % 1.0 Promyelocytes % 0 Blast Cells % 0 Nucleated RBC % Not Reportable Seg Neutrophils # Man 6.6 Band Neutrophils # 0.2 Lymphocytes # (Manual) 2.7 Abs React Lymphs (Man) 0.0 Monocytes # (Manual) 0.0 Eosinophils # (Manual) 0.2 Basophils # (Manual) 0.0 Metamyelocytes # 0.6 Myelocytes # 0.1 Promyelocytes # 0.0 Blast Cells # 0.0 WBC Morphology Not Reportable Hypersegmented Neuts Not Reportable Hyposegmented Neuts Not Reportable Hypogranular Neuts Not Reportable Smudge Cells Not Reportable Toxic Granulation Not Reportable Toxic Vacuolation Not Reportable Dohle Bodies Not Reportable Pelger-Huet Anomaly Not Reportable [place] Rods Not Reportable Platelet Estimate Appears normal Clumped Platelets Not Reportable Plt Clumps, EDTA Not Reportable Large Platelets Not Reportable Giant Platelets Not Reportable Platelet Satelliting Not Reportable Plt Morphology Comment Not Reportable RBC Morphology Not Reportable Dimorphic RBCs Not Reportable Polychromasia 1+ Hypochromasia Not Reportable Poikilocytosis Not Reportable Anisocytosis 1+ Microcytosis 1+ Macrocytosis Not Reportable Spherocytes Not Reportable Pappenheimer Bodies Not Reportable Sickle Cells Not Reportable Target Cells Not Reportable Tear Drop Cells Rare Ovalocytes 1+ Stomatocytes Few Helmet Cells Not Reportable [place] Bodies Not Reportable [place] Rings Not Reportable [place] Cells Not Reportable Bite Cells Not Reportable Crenated Cell Not Reportable Elliptocytes Few Acanthocytes (Spur) Not Reportable Rouleaux Not Reportable Hemoglobin C Crystals Not Reportable Schistocytes Not Reportable Malaria parasites Not Reportable Jl Bodies Not Reportable Hem Pathologist Commnt No POC Glucose 92 166 H
[2018-05-23] MEDS: PRENATAL VITAMIN PO SCH (10:41)
[2018-05-23] MEDS: FEOSOL PO SCH ×3 (10:41→21:00)
[2018-05-23] MEDS: ZITHROMAX PO SCH (10:41)
--- NOTE | 2018-05-23 13:21 | Event Note ---
Date: 05/23/[address] Roland and communicated with the patient. Explained again the risks of patient's request for reduced monitoring, ambulation and showering. As long as patient understands the risks and accept responsibility, he accepts above change in recommendations.
[2018-05-24] MEDS: FEOSOL PO SCH ×2 (09:22→14:00)
--- NOTE | 2018-05-24 09:36 | Progress Note ---
Assessment and Plan - Patient Problems (1) 28 weeks gestation of Current Visit: Yes Status: Acute (2) Dichorionic diamniotic twin gestation Current Visit: Yes Status: Acute (3) premature rupture of membranes (PPROM) with unknown onset of labor Current Visit: Yes Status: Acute Plan to address problem: Patient did refused monitoring a few days ago. She wanted to be monitored only when she wants to and demanded that she be allowed to walk around the hallway and not have the monitor on her abdomen. I and the other doctors involved in the care of this patient did speak with her several times about her requests and we had told her that with PPROM and premature , there is a high risk of having cord prolapse, distress without knowing if such is happening while she is ambulating. Patient did threaten to sign out AMA if she is not allow to remove the monitor. Continuous monitoring was ordered. Patient understands that if she refused monitoring and if the babies have cord prolapse, we would not know to intervene on time and that carries a high risk of demise and asphyxia, cerebral palsy, brain damage ect. BPP and WBC Q2 days. Will stop IV antibiotics and start PO erythromycin. APA agreed with above management. (4) Gestational diabetes Current Visit: Yes Status: Acute Plan to address problem: Patient has been on ADA diet. She declined insulin sliding scale and said that she only wants to manage her diabetes with diet. She was told many times that diabetes in can lead to distress, delayed lung maturity, demise, increased complications after delivery. She and her partner expressed understanding and still declined diabetic management. Patient did sign refusal for treatment. APA was made aware that this patient had refused all diabetic care. (5) Anemia Current Visit: Yes Status: Acute Qualifiers: Anemia type: iron deficiency Subjective - Subjective Date of service: 05/24/18 Principal diagnosis: Twins gestation at 28 weeks with PPROM Interval history: Patient is a 32 year old , LMP 11/08/17, EDC 08/15/18 at 28 weeks and 1 day with twin gestation who was admitted after she went to the office for a routine visit at 27 weeks. She reported that she had been leaking fluids for 4 days prior to going to the office. She denied any contractions or bleeding. She did not go to the hospital to get checked after she started leaking. On exam in the office, there was pooling of clear fluid, cervix was 3- 4 cm dilated. She was sent in for admission. tracing was CAT1 for both babies, toco showed no contractions. Magnesium sulfate for tocolysis and neuroprotection was given and discontinued 5 days ago, Celestone for FLM was completed, IV antibiotics prophylaxis was given. Bedside sonogram showed baby A to be VTX, EFW 949 gms, normal JOHN and baby B to be vertex, EFW 953 gms, normal JOHN. BPP was 8/8 for both babies. NICU consult was done. APA consult was done. Agreed with current management. This AM, she denies any complaint. Patient reports: new complaints, loss of fluid, movement normal, no vaginal bleeding, no contractions Objective - Vital Signs Vital Signs: Vital Signs - 12hr 05/23/18 05/24/18 05/24/18 22:13 06:05 07:18 Temperature 98.6 F 98.3 F Pulse Rate 95 H 95 H 88 Respiratory 18 18 Rate Blood Pressure 119/69 Blood Pressure 119/69 115/64 [Right] 05/24/18 07:19 Temperature Pulse Rate 88 Respiratory Rate Blood Pressure 115/64 Blood Pressure [Right] - Exam Cardiovascular: Normal S1, Normal S2 Lungs: Clear to auscultation Vulva: both: normal FHR: category 1 Uterine Contraction Monitor Mode: External Uterine Contraction Pattern: Absent - Labs Labs: Abnormal Labs 05/16/18 05/16/18 05/16/18 13:31 13:31 21:41 WBC RBC 3.56 L Hgb 9.4 L Hct 28.7 L MCH 26 L RDW Lymph % (Auto) Seg Neutrophils % Seg Neuts % (Manual) 75.0 H Nucleated RBC % Seg Neutrophils # Sodium 134 L Potassium 3.4 L Carbon Dioxide 20 L BUN 3 L Creatinine 0.4 L Glucose 161 H POC Glucose Hemoglobin A1c Magnesium 4.30 H 05/17/18 05/17/18 05/17/18 02:34 12:44 19:57 WBC RBC Hgb Hct MCH RDW Lymph % (Auto) Seg Neutrophils % Seg Neuts % (Manual) Nucleated RBC % Seg Neutrophils # Sodium Potassium Carbon Dioxide BUN Creatinine Glucose POC Glucose 225 H Hemoglobin A1c Magnesium 2.90 H 4.70 H 05/18/18 05/18/18 05/18/18 00:10 06:02 07:49 WBC RBC Hgb Hct MCH RDW Lymph % (Auto) Seg Neutrophils % Seg Neuts % (Manual) Nucleated RBC % Seg Neutrophils # Sodium Potassium Carbon Dioxide BUN Creatinine Glucose POC Glucose 141 H Hemoglobin A1c Magnesium 4.60 H 4.70 H 05/18/18 05/18/18 05/18/18 09:13 12:26 12:30 WBC 13.0 H RBC 3.21 L Hgb 8.4 L Hct 25.7 L MCH 26 L RDW Lymph % (Auto) 11.6 L Seg Neutrophils % 82.5 H Seg Neuts % (Manual) Nucleated RBC % Seg Neutrophils # 10.7 H Sodium Potassium Carbon Dioxide BUN Creatinine Glucose POC Glucose 125 H Hemoglobin A1c Magnesium 4.20 H 05/18/18 05/18/18 05/18/18 14:59 20:00 22:23 WBC RBC Hgb Hct MCH RDW Lymph % (Auto) Seg Neutrophils % Seg Neuts % (Manual) Nucleated RBC % Seg Neutrophils # Sodium Potassium Carbon Dioxide BUN Creatinine Glucose POC Glucose 179 H 158 H 144 H Hemoglobin A1c Magnesium 05/19/18 05/20/18 05/21/18 23:41 16:50 11:54 WBC RBC 3.13 L Hgb 8.3 L Hct 25.4 L MCH 27 L RDW Lymph % (Auto) Seg Neutrophils % Seg Neuts % (Manual) Nucleated RBC % 1.0 H Seg Neutrophils # Sodium Potassium Carbon Dioxide BUN Creatinine Glucose POC Glucose 141 H 146 H Hemoglobin A1c Magnesium 05/21/18 05/22/18 05/22/18 18:27 06:46 06:46 WBC RBC 3.20 L Hgb 8.5 L Hct 26.2 L MCH 27 L RDW 15.4 H Lymph % (Auto) Seg Neutrophils % Seg Neuts % (Manual) Nucleated RBC % Seg Neutrophils # Sodium Potassium Carbon Dioxide BUN Creatinine Glucose POC Glucose 149 H Hemoglobin A1c 6.6 H Magnesium 05/22/18 14:34 WBC RBC Hgb Hct MCH RDW Lymph % (Auto) Seg Neutrophils % Seg Neuts % (Manual) Nucleated RBC % Seg Neutrophils # Sodium Potassium Carbon Dioxide BUN Creatinine Glucose POC Glucose 166 H Hemoglobin A1c Magnesium Laboratory Results - last 24 hr 05/23/18 09:17 Blood Type O POSITIVE Antibody Screen Negative - Results US- obstetric: report reviewed
[2018-05-24] MEDS: ZITHROMAX PO SCH (10:40)
[2018-05-24] MEDS: PRENATAL VITAMIN PO SCH (10:40)
--- NOTE | 2018-05-24 13:40 | Ultrasound Report ---
OB ULTRASOUND OB ULTRASOUND ADD GESTATION History premature rupture of membranes. Technique: Transabdominal ultrasound with Doppler interrogation. Gestation: Twin A Position: Cephalic Amniotic Fluid: Decreased JOHN = 1.0 cm largest vertical pocket Placenta: Posterior Placental Grade: 2 Heart Rate: 152 BPM Cervical length: 3.8 cm (Normal > 3 cm) BPD: 6.1 cm = 24 w 6 d HC: 23.2 cm = 25 w 2 d AC: 23.1 cm = 27 w 3 d FL: 5.2 cm = 27 w 5 d HC/AC Ratio: 1.01 Cephalic Index: 76.4 Estimated Weight: 1029 grams Clinical age = 28 w 1 d EDC: 08/15/18 US Gest. Age = 26 w 2 d EDC: 08/28/18 Gestation: Twin B Position: Breech Amniotic Fluid: Normal JOHN = 3.8 cm largest vertical pocket Placenta: Anterior Placental Grade: 2 Heart Rate: 155 BPM Cervical length: 3.8 cm (Normal > 3 cm) BPD: 6.4 cm = 25 w 5 d HC: 25.6 cm = 27 w 5 d AC: 24.2 cm = 28 w 3 d FL: 5.2 cm = 27 w 6 d HC/AC Ratio: 1.06 Cephalic Index: 72.9 Estimated Weight: 1157 grams Clinical age = 28 w 1 d EDC: 08/15/18 US Gest. Age = 27 w 3 d EDC: 08/20/18 IMPRESSION: Viable twin intrauterine as described.
--- NOTE | 2018-05-24 13:43 | Ultrasound Report ---
ULTRASOUND OB VELOCIMETRY UMBILICAL ARTERY HISTORY: Premature rupture of membranes, twin gestation. TECHNIQUE: Transabdominal ultrasound. Spectral Doppler interrogation was performed on 3 segments of the umbilical cord. FINDINGS: Twin A heart rate measures 156 beats per minute. The spectral waveforms are normal and persistent. No evidence for loss or reversal of end-diastolic flow. The resistive index average measures 0.59. The systolic/diastolic ratio average measures 2.58. Twin B heart rate measures 155 beats per minute. The spectral waveforms are normal and persistent. No evidence for loss or reversal of end-diastolic flow. The resistive index average measures 0.48. The systolic/diastolic ratio average measures 1.96. IMPRESSION: Umbilical cord Doppler within normal limits.
--- NOTE | 2018-05-24 13:45 | Ultrasound Report ---
ULTRASOUND BIOPHYSICAL PROFILE: ULTRASOUND BIOPHYSICAL PROFILE ADD EXAM: History: Premature rupture of membranes, twin gestation Technique: Transabdominal ultrasound with Doppler interrogation. Twin A 2 - breathing movements 2 - movements 2 - posture and tone 0 - Qualitative amniotic fluid volume 6 - TOTAL SCORE OF POSSIBLE 8 Heart Rate (bpm) 156 Twin B 2 - breathing movements 2 - movements 2 - posture and tone 2 - Qualitative amniotic fluid volume 8 - TOTAL SCORE OF POSSIBLE 8 Heart Rate (bpm) 155
[2018-05-24] MEDS: TYLENOL PO PRN (16:15)
[2018-05-24] MEDS: PROCARDIA*For Tocolysis only PO PRN (20:40)
[2018-05-25] MEDS: LACTATED RINGERS 1,000 ML IV SCH ×3 (05:22→19:57)
[2018-05-25] MEDS ORDERED: STADOL IV ONE (05:30)
[2018-05-25] MEDS ORDERED: STADOL ONE (05:30)
[2018-05-25 05:53] LABS: Hematocrit 30.2 % (30.3-42.9); Hemoglobin 9.8 gm/dl (10.1-14.3); Mean Corpuscular HGB Conc 32 % (30-34); Mean Corpuscular Hemoglobin 26 pg (28-32); Mean Corpuscular Volume 82 fl (79-97); Platelet Count 249 K/mm3 (140-440); Red Cell Distribution Width 15.5 % (13.2-15.2)
[2018-05-25] MEDS: PROCARDIA*For Tocolysis only PO PRN ×4 (06:00→23:37)
[2018-05-25] MEDS ORDERED: STADOL IV PRN (08:20)
[2018-05-25 08:37] LABS: Basophils % (Manual) 0 % (0.0-1.8); Eosinophils % (Manual) 0 % (0.0-4.3); Myelocytes # (Manual) 0.3 K/mm3; Total Cells Counted 100
[2018-05-25 08:38] LABS: Anisocytosis 1+
[2018-05-25 08:39] LABS: Ovalocytes 1+; Poikilocytosis 1+
--- NOTE | 2018-05-25 08:46 | Progress Note ---
Assessment and Plan - Patient Problems (1) 28 weeks gestation of Current Visit: Yes Status: Acute (2) Dichorionic diamniotic twin gestation Current Visit: Yes Status: Acute (3) premature rupture of membranes (PPROM) with unknown onset of labor Current Visit: Yes Status: Acute Plan to address problem: Patient did refused monitoring a few days ago. She wanted to be monitored only when she wants to and demanded that she be allowed to walk around the hallway and not have the monitor on her abdomen. I and the other doctors involved in the care of this patient did speak with her several times about her requests and we had told her that with PPROM and premature , there is a high risk of having cord prolapse, distress without knowing if such is happening while she is ambulating. Patient did threaten to sign out AMA if she is not allow to remove the monitor. Continuous monitoring was ordered. Patient understands that if she refused monitoring and if the babies have cord prolapse, we would not know to intervene on time and that carries a high risk of demise and asphyxia, cerebral palsy, brain damage ect. BPP and WBC Q2 days. Continue PO erythromycin. [facility] agreed with above management. (4) Gestational diabetes Current Visit: Yes Status: Acute Plan to address problem: Patient has been on ADA diet. She declined insulin sliding scale and said that she only wants to manage her diabetes with diet. She was told many times that diabetes in can lead to distress, delayed lung maturity, demise, increased complications after delivery. She and her partner expressed understanding and still declined diabetic management. Patient did sign refusal for treatment. [facility] was made aware that this patient had refused all diabetic care. (5) Anemia Current Visit: Yes Status: Acute Qualifiers: Anemia type: iron deficiency Subjective - Subjective Date of service: 05/25/18 Principal diagnosis: Twins gestation at 28 weeks with PPROM Interval history: Patient is a 32 year old , LMP 11/08/17, EDC 08/15/18 at 28 weeks and 2 days with twin gestation who was admitted after she went to the office for a routine visit at 27 weeks. She reported that she had been leaking fluids for 4 days prior to going to the office. She denied any contractions or bleeding. She did not go to the hospital to get checked after she started leaking. On exam in the office, there was pooling of clear fluid, cervix was 3- 4 cm dilated. She was sent in for admission. tracing was CAT1 for both babies, toco showed no contractions. Magnesium sulfate for tocolysis and neuroprotection was given and discontinued 6 days ago, Celestone for FLM was completed, IV antibiotics prophylaxis was given. Bedside sonogram showed baby A to be VTX, EFW 949 gms, normal JOHN and baby B to be vertex, EFW 953 gms, normal JOHN. BPP was 8/8 for both babies. NICU consult was done. [facility] consult was done. Agreed with current management. Patient complained of having irregular contractions last night. Cervix was unchanged as of early this AM. She received stadol which helped a lot. Now, she feels comfortable. tracing remained CAT 1 for both babies. Sono at 1 AM today showed baby A to be stable with BPP of 8/8. Patient reports: new complaints, loss of fluid, movement normal, no vaginal bleeding, no contractions Objective - Vital Signs Vital Signs: Vital Signs - 12hr 05/24/18 05/25/18 05/25/18 22:11 05:21 05:25 Temperature 98.5 F Pulse Rate 127 H 90 90 Respiratory 18 Rate Blood Pressure 105/57 109/63 Blood Pressure 109/63 [Right] - Exam Cardiovascular: Normal S1, Normal S2 Lungs: Clear to auscultation Vulva: both: normal FHR: category 1 Uterine Contraction Monitor Mode: External Uterine Contraction Pattern: Absent Deep Tendon Reflex Grade: Normal +2 - Labs Labs: Abnormal Labs 05/16/18 05/16/18 05/16/18 13:31 13:31 21:41 WBC RBC 3.56 L Hgb 9.4 L Hct 28.7 L MCH 26 L RDW Lymph % (Auto) Seg Neutrophils % Seg Neuts % (Manual) 75.0 H Monocytes % (Manual) Nucleated RBC % Seg Neutrophils # Seg Neutrophils # Man Monocytes # (Manual) Sodium 134 L Potassium 3.4 L Carbon Dioxide 20 L BUN 3 L Creatinine 0.4 L Glucose 161 H POC Glucose Hemoglobin A1c Magnesium 4.30 H 05/17/18 05/17/18 05/17/18 02:34 12:44 19:57 WBC RBC Hgb Hct MCH RDW Lymph % (Auto) Seg Neutrophils % Seg Neuts % (Manual) Monocytes % (Manual) Nucleated RBC % Seg Neutrophils # Seg Neutrophils # Man Monocytes # (Manual) Sodium Potassium Carbon Dioxide BUN Creatinine Glucose POC Glucose 225 H Hemoglobin A1c Magnesium 2.90 H 4.70 H 05/18/18 05/18/18 05/18/18 00:10 06:02 07:49 WBC RBC Hgb Hct MCH RDW Lymph % (Auto) Seg Neutrophils % Seg Neuts % (Manual) Monocytes % (Manual) Nucleated RBC % Seg Neutrophils # Seg Neutrophils # Man Monocytes # (Manual) Sodium Potassium Carbon Dioxide BUN Creatinine Glucose POC Glucose 141 H Hemoglobin A1c Magnesium 4.60 H 4.70 H 05/18/18 05/18/18 05/18/18 09:13 12:26 12:30 WBC 13.0 H RBC 3.21 L Hgb 8.4 L Hct 25.7 L MCH 26 L RDW Lymph % (Auto) 11.6 L Seg Neutrophils % 82.5 H Seg Neuts % (Manual) Monocytes % (Manual) Nucleated RBC % Seg Neutrophils # 10.7 H Seg Neutrophils # Man Monocytes # (Manual) Sodium Potassium Carbon Dioxide BUN Creatinine Glucose POC Glucose 125 H Hemoglobin A1c Magnesium 4.20 H 05/18/18 05/18/18 05/18/18 14:59 20:00 22:23 WBC RBC Hgb Hct MCH RDW Lymph % (Auto) Seg Neutrophils % Seg Neuts % (Manual) Monocytes % (Manual) Nucleated RBC % Seg Neutrophils # Seg Neutrophils # Man Monocytes # (Manual) Sodium Potassium Carbon Dioxide BUN Creatinine Glucose POC Glucose 179 H 158 H 144 H Hemoglobin A1c Magnesium 05/19/18 05/20/18 05/21/18 23:41 16:50 11:54 WBC RBC 3.13 L Hgb 8.3 L Hct 25.4 L MCH 27 L RDW Lymph % (Auto) Seg Neutrophils % Seg Neuts % (Manual) Monocytes % (Manual) Nucleated RBC % 1.0 H Seg Neutrophils # Seg Neutrophils # Man Monocytes # (Manual) Sodium Potassium Carbon Dioxide BUN Creatinine Glucose POC Glucose 141 H 146 H Hemoglobin A1c Magnesium 05/21/18 05/22/18 05/22/18 18:27 06:46 06:46 WBC RBC 3.20 L Hgb 8.5 L Hct 26.2 L MCH 27 L RDW 15.4 H Lymph % (Auto) Seg Neutrophils % Seg Neuts % (Manual) Monocytes % (Manual) Nucleated RBC % Seg Neutrophils # Seg Neutrophils # Man Monocytes # (Manual) Sodium Potassium Carbon Dioxide BUN Creatinine Glucose POC Glucose 149 H Hemoglobin A1c 6.6 H Magnesium 05/22/18 05/25/18 14:34 Unknown WBC 14.6 H RBC Hgb 9.8 L Hct 30.2 L MCH 26 L RDW 15.5 H Lymph % (Auto) Seg Neutrophils % Seg Neuts % (Manual) 73.0 H Monocytes % (Manual) 8.0 H Nucleated RBC % Seg Neutrophils # Seg Neutrophils # Man 10.7 H Monocytes # (Manual) 1.2 H Sodium Potassium Carbon Dioxide BUN Creatinine Glucose POC Glucose 166 H Hemoglobin A1c Magnesium Laboratory Results - last 24 hr 05/25/18 05/25/18 05/25/18 05:57 Unknown Unknown WBC 14.6 H RBC 3.70 Hgb 9.8 L Hct 30.2 L MCV 82 MCH 26 L MCHC 32 RDW 15.5 H Plt Count 249 Add Manual Diff Complete Total Counted 100 Seg Neuts % (Manual) 73.0 H Band Neutrophils % 0 Lymphocytes % (Manual) 17.0 Reactive Lymphs % (Man) 0 Monocytes % (Manual) 8.0 H Eosinophils % (Manual) 0 Basophils % (Manual) 0 Metamyelocytes % 0 Myelocytes % 2.0 Promyelocytes % 0 Blast Cells % 0 Nucleated RBC % Not Reportable Seg Neutrophils # Man 10.7 H Band Neutrophils # 0.0 Lymphocytes # (Manual) 2.5 Abs React Lymphs (Man) 0.0 Monocytes # (Manual) 1.2 H Eosinophils # (Manual) 0.0 Basophils # (Manual) 0.0 Metamyelocytes # 0.0 Myelocytes # 0.3 Promyelocytes # 0.0 Blast Cells # 0.0 WBC Morphology Not Reportable Hypersegmented Neuts Not Reportable Hyposegmented Neuts Not Reportable Hypogranular Neuts Not Reportable Smudge Cells Not Reportable Toxic Granulation Not Reportable Toxic Vacuolation Not Reportable Dohle Bodies Not Reportable Pelger-Huet Anomaly Not Reportable Pillo Rods Not Reportable Platelet Estimate Appears normal Clumped Platelets Not Reportable Plt Clumps, EDTA Not Reportable Large Platelets Not Reportable Giant Platelets Not Reportable Platelet Satelliting Not Reportable Plt Morphology Comment Not Reportable RBC Morphology Not Reportable Dimorphic RBCs Not Reportable Polychromasia Not Reportable Hypochromasia Not Reportable Poikilocytosis 1+ Anisocytosis 1+ Microcytosis 1+ Macrocytosis Not Reportable Spherocytes Not Reportable Pappenheimer Bodies Not Reportable Sickle Cells Not Reportable Target Cells Not Reportable Tear Drop Cells Not Reportable Ovalocytes 1+ Helmet Cells Not Reportable [place] Bodies Not Reportable [place] Rings Not Reportable [place] Cells Not Reportable Bite Cells Not Reportable Crenated Cell Not Reportable Elliptocytes Not Reportable Acanthocytes (Spur) Not Reportable Rouleaux Not Reportable Hemoglobin C Crystals Not Reportable Schistocytes Not Reportable Malaria parasites Not Reportable Jl Bodies Not Reportable Hem Pathologist Commnt No POC Glucose 89 Magnesium 1.90 - Results US- obstetric: report reviewed
[2018-05-25] MEDS: FEOSOL PO SCH (09:10)
[2018-05-25] MEDS: ZITHROMAX PO SCH (10:07)
[2018-05-25] MEDS: PRENATAL VITAMIN PO SCH (10:09)
--- NOTE | 2018-05-25 12:55 | Consultation ---
History of Present Illness Reason for consult: other (other ((Patient is a 32 year old , LMP , EDC 08/15/18 at 28 weeks and 2 day gestation Followed by [facility] for DI/DI twin gestation , Twin A with IUGR ( last [facility] EFW @ 7% ) , resolved Polyhydramnios for Twin A and Twin B who was admitted 05/16/18 after she went to the office for a routine visit. She reported that she had been leaking fluids for 4 days which was 05/12/18. She denied any contractions or bleeding. She did not go to the hospital to get checked. She presented from [facility] OB office pooling of clear fluid, cervix was 3-4 cm dilated Patient is refusing continuous ETM toco showed irr contractions. S/P magnesium sulfate for tocolysis and neuroprotection , S/P Celestone for FLM, antibiotics prophylaxis. 05/24/18 sonogram revealed Twin A to be VTX, EFW of 11% and Twin B to be breech EFW of 33%) [facility] Twin A BPP 6/8 with MVP of 1.0 cm with reassuring [facility] doppler and Twin B MVP 3.8 cm BPP 8/8 with normal [facility] doppler Today patient reports no LOF, denies ctx, and VB. Reports irregular contractions improves with PRN Procardia ) Past History Past Medical History: no pertinent history Past Surgical History: RESIDENT MANAGER/uterine surgery (status post salpingectomy for ectopic ?laparoscopic) RESIDENT MANAGER History: denies: chlamydia, gonorrhea, hepatitis B, hepatitis C, herpes, HIV , syphilis, trichomonas - Obstetrical History : 6 Medications and Allergies Allergies Allergy/AdvReac Type Severity Reaction Status Date / Time aspirin Allergy Vomiting Verified 06/11/14 08:12 Home Medications Medication Instructions Recorded Confirmed Last Taken Type No Known Home Medications [No 05/13/18 05/17/18 Unknown History Reported Home Medications] Active Meds: Active Medications Acetaminophen (Tylenol) 650 mg PO Q4H PRN PRN Reason: Pain MILD(1-3)/Fever >100.5/ORTEGA Last Admin: 05/24/18 16:15 Dose: 650 mg Azithromycin (Zithromax) 250 mg PO QDAY ARNOL Last Admin: 05/25/18 10:07 Dose: 250 mg Butorphanol Tartrate (Stadol) 2 mg IV Q4HR PRN PRN Reason: Labor Pain Last Admin: 05/25/18 08:47 Dose: 2 mg Docusate Sodium (Colace) 100 mg PO Q12H PRN PRN Reason: Constipation Ferrous Sulfate (Feosol) 325 mg PO TID [facility] Last Admin: 05/25/18 09:10 Dose: Not Given Guaifenesin (Guaifenesin Dm Syrup) 10 ml PO Q6H PRN PRN Reason: Cough Dextrose/Lactated Ringer's (D5lr) 1,000 mls @ 125 mls/hr IV DIRECT ARNOL Lactated Ringer's (Lactated Ringers) 1,000 mls @ 125 mls/hr IV DIRECT ARNOL Last Admin: 05/25/18 08:48 Dose: 75 mls/hr Multivitamins/Iron/Calcium ( Vitamin) 1 each PO QDAY ARNOL Last Admin: 05/25/18 10:09 Dose: Not Given Nifedipine (Procardia*For Tocolysis Only*) 10 mg PO Q4HR PRN PRN Reason: Premature Labor Last Admin: 05/25/18 10:07 Dose: 10 mg Ondansetron HCl (Zofran) 4 mg IV Q6H PRN PRN Reason: Nausea And Vomiting Senna/Docusate Sodium (Senokot S) 2 tab PO Q12H PRN PRN Reason: Laxative Effect Simethicone (Mylicon) 80 mg PO Q6H PRN PRN Reason: Gas pain Review of Systems Constitutional: no fever, no chills Eyes: deferred Ears, nose, mouth and throat: no headache Cardiovascular: no chest pain, no palpitations, no rapid/irregular heart beat, no syncope, no high blood pressure Respiratory: no shortness of breath Breasts: deferred Gastrointestinal: no abdominal pain Genitourinary: contractions (Irregular ), no vaginal bleeding, no vaginal discharge, no leakage of fluid (NO LOF during consultation) Rectal Exam: deferred Integumentary: no rash Neurological: no headaches Endocrine: other (GDM with adequate glycemic control under ADA diet for 05/25/18 ) - Vital Signs Vital signs: Vital Signs Temp Pulse Resp BP Pulse Ox 99.0 F 110 H 16 118/62 95 05/16/18 13:14 05/16/18 13:14 05/16/18 13:14 05/16/18 13:14 05/16/18 13:14 Temp Pulse Resp BP Pulse Ox 98.4 F 90 18 109/63 99 05/25/18 09:27 05/25/18 05:25 05/25/18 05:25 05/25/18 05:25 05/22/18 10:07 - Physical Exam Cardiovascular: Regular rate Lungs: Positive: Normal air movement Abdomen: Negative: tenderness, guarding Uterus: Positive: other (gravid). Negative: tender Deep Tendon Reflex Grade: Normal +2 - Obstetrical FHR: other (refusing continuous monitoring) Uterine Contraction Monitor Mode: External Cervical Dilatation: 4 (per RN SVE performed by staff on 05/24/18) Uterine Contraction Pattern: Irregular Uterine Contraction Intensity: Mild Results Result Diagrams: 05/25/18 Unknown 05/16/18 13:31 Abnormal lab results 05/25/18 05/25/18 Range/Units 10:23 Unknown WBC 14.6 H (4.5-11.0) K/mm3 Hgb 9.8 L (10.1-14.3) gm/dl Hct 30.2 L (30.3-42.9) % MCH 26 L (28-32) pg RDW 15.5 H (13.2-15.2) % Seg Neuts % (Manual) 73.0 H (40.0-70.0) % Monocytes % (Manual) 8.0 H (0.0-7.3) % Seg Neutrophils # Man 10.7 H (1.8-7.7) K/mm3 Monocytes # (Manual) 1.2 H (0.0-0.8) K/mm3 POC Glucose 113 H (70-105) All other labs normal. Assessment and Plan A) - TIUP @ 28.2 weeks - DI/DI twin gestation - Previous [facility] assessment Twin A with IUGR Twin A and Twin B with Polyhydramnios - PPROM from 05/12/18 however patient presented for evaluation on 05/16/18 - Prior concerns for irregular contractions which resolves with PRN Procardia - ABX as protocol - 05/24/18 Reported advanced cervical dilation of 4 cm ( no change from prior assessment ) - [facility] cervical length assessment of 3.8 cm - Twin A VTX presentation with improved MVP of 1.0 cm ( 05/24/18) assessment) -Twin A with Oligo - Twin A BPP of 6/8 with reassuring [facility] doppler - Twin A with SGA assessment with EFW @ 11% - Twin B in BREECH presentation with reassuring MVP of 3.8 - Twin B growth asssessment EFW @ 33% - Twin B BPP 8/8 with reassuring [facility] doppler - Anemia with Hgb of 9.8 mg - History of GDM - Recent dx of GDM ( 05/16/18) 1 GTT of 211 mg ] - Today's glycemic levels : FBS 89 and PPB of 113s - OB previously reports patient declining sliding scale insulin recommendation - S/P BMZ for FLM - S/P MgSO4 for neuroprotection - NO sxs of chorio - WBC 14.7 - S/P NICU consult P) - In agreement with in patient management - Treat anemia - Weekly CBC - FBS and PP ( Treat BS accordingly if patient refuses treatment- advised to sign medical refusal ) - Due to twin gestation 2400- 2500 ADA diet to include bedtime snacks - Continous monitoring ( patient has been declining) - Twice weekly BPP for Twin A and Twin B ( MVP to documented ) - Twin growth assessment Q 2 weeks - Change Procardia from PRN to scheduled - Delivery with sxs of chorio , twin compromise or maternal compromise - Delivery at 34 weeks with no compromise - Convert ABX from IVB to PO regimen - With no change in twin or maternal assessment / no compromise weekly [facility] assessment
[2018-05-26] MEDS ORDERED: PITOCin/NS 20 UNIT/1000ML DRIP 20,000 MILLIUNITS/1,000 ML BAG IV ONE ×2 (01:27→01:53)
[2018-05-26] MEDS ORDERED: NACL 0.9% IV ONE (01:28)
[2018-05-26] MEDS ORDERED: POLYCILLIN IV ONE (01:28)
--- NOTE | 2018-05-26 01:29 | Event Note ---
Called to bed of patient writhing in pain. She states she is having contractions. Cervix 5 cm. Ordered ultrasound to confirm presentation. Twin A vertex. Twin B vertex. Twin A was noted to be in the vagina on ultrasound. Recheck of exam noted cervix 8/90/+1. A double-set up was requested to proceed to vaginal delivery in the OR. Plan 1. Ampicillin 2g IV 2. Double-setup with ultrasound guidance for vaginal delivery 3. NICU notification 4. Discussion with mother concerning impending delivery, active labor. She understands that although both Twins are vertex it may be necessary to delivery one or both twins via section. The risks including but not limited to bleeding, infection, need for hysterectomy, need for blood transfusion, risk of injury to mother, infant and/or surrounding organs were discussed.
[2018-05-26] MEDS ORDERED: PEPCID IV ONE ×2 (01:58→06:12)
[2018-05-26] MEDS ORDERED: BICITRA ONE (01:58)
[2018-05-26] MEDS ORDERED: REGLAN ONE (01:58)
[2018-05-26] MEDS ORDERED: POLYCILLIN/NS 2 GM/100 ML 2 GM/100 ML BAG IV ONE (02:00)
[2018-05-26] MEDS ORDERED: ceFAZolin 2 GM in NACL 0.9% 20 ML IV ONE (02:00)
[2018-05-26] MEDS ORDERED: DIPRIVAN 10 MG/ML IV ONE (02:08)
[2018-05-26] MEDS ORDERED: SUBLIMAZE ONE (02:09)
[2018-05-26] MEDS ORDERED: NACL 0.9% IR ONE (02:15)
[2018-05-26] MEDS ORDERED: WATER FOR IRRIG STERILE IR ONE (02:15)
[2018-05-26] MEDS ORDERED: METHERGINE IM ONE ×2 (02:30→02:42)
[2018-05-26] MEDS ORDERED: QUELICIN ONE (02:33)
[2018-05-26] MEDS ORDERED: NEO SYNEPHRINE/NS Syringe(OR USE) IV ONE (02:37)
[2018-05-26] MEDS ORDERED: NACL 0.9% 500 ML 500 ML IV ONE (02:42)
[2018-05-26] MEDS ORDERED: ALBURX 25% (ALBUMIN) IV ONE ×2 (02:44→02:45)
[2018-05-26] MEDS ORDERED: LANSINOH TP PRN (03:34)
[2018-05-26] MEDS ORDERED: TUCKS PAD TP PRN (03:34)
[2018-05-26] MEDS ORDERED: NARCAN 0.4 MG/1 ML IV PRN ×2 (03:34)
[2018-05-26] MEDS ORDERED: BENADRYL PO PRN (03:34)
--- NOTE | 2018-05-26 03:39 | Anesthesia Consultation ---
Anesthesia Consult and Med Hx Date of service: 05/26/18 - Airway Anesthetic Teeth Evaluation: Good ROM Head & Neck: Adequate Mental/Hyoid Distance: Adequate Mallampati Class: Class II Intubation Access Assessment: Good - Pulmonary Exam CTA: Yes - Cardiac Exam Cardiac Exam: No Murmur - Pre-Operative Health Status ASA Pre-Surgery Classification: ASA2 Proposed Anesthetic Plan: General - Pulmonary Hx Asthma: No COPD: No Hx Pneumonia: No - Cardiovascular System Hx Hypertension: No Hx Coronary Artery Disease: No Hx Heart Attack/AMI: No Hx Angina: No - Central Nervous System Hx Seizures: No Hx Psychiatric Problems: No - Endocrine Hx Renal Disease: No Hx End Stage Renal Disease: No Hx Hypothyroidism: No Hx Hyperthyroidism: No - Hematic Hx Anemia: No Hx Sickle Cell Disease: No - Other Systems Hx Alcohol Use: No
--- NOTE | 2018-05-26 03:44 | Operative Report ---
Operative Report Operative Report: PREOP Diagnosis 1. 28 3/7 weeks gestation 2. Dichorionic-Diamnoitic twin gestation 3. Premature Rupture of membranes of Twin A 4. labor 5. Oligohydramnois of Twin A 6. Gestational diabetes - uncontrolled 7. Anemia of 8. Unstable lie - Twin B 9. Malpresentation Twin B Postop Diagnosis 1. 28 3/7 weeks gestation 2. Dichorionic-Diamnoitic twin gestation 3. Premature Rupture of membranes of Twin A 4. labor 5. Oligohydramnois of Twin A 6. Gestational diabetes - uncontrolled 7. Anemia of 8. Unstable lie - Twin B 9. Malpresentation Twin B 10. hemorrhage Procedure: 1. Primary classical section Findings 1. Viable male infant in breech position, weighing 1090g APGARS 8 at 1 min, 9 at 5 min 2. Normal uterus, bilateral ovaries and tubes Surgeon 1. Marisabel Brown MD Anesthesia: 1.General I/O: EBL: 1200ml IVF 1500ml LR Albumin - 100ml x 2 Specimens removed: 1. Placenta -Twin A and Twin B sent to pathology Complications: none Disposition: Patient taken to recovery room in stable condition INDICATIONS: The patient is a 32yo at 28 3/7weeks with admission since 05/16 for premature rupture of membranes that went into active labor. She delivered Twin A vaginally and Twin B was noted to be shoulder presentation therefore the decision was made to proceed to primary section. The patient was consented and the risks including but not limited to bleeding, infections, injury to surrounding organs, potential injury to mother/infant were discussed. All questions were answered and informed consent signed. PROCEDURE: The patient was taken to the OR in stable condition. A carter catheter was placed. She wore SCDs for DVT prophylaxis. And received Ancef for infection prophylaxis. The patient was prepped and draped in the usual fashion and an additional time out was done. Adequate anesthesia was achieved with general anesthesia. A Pfannestiel incision was made in the skin. The fascia was incised and the incision extended laterally. The superior and inferior aspect of the rectus muscle was dissected off of the fascia. Entry into the peritoneum was achieved and the incision was extended cranially and caudally. A transverse incision was made in the uterus and extended cranially at the midline to facililate delivery. membranes were ruptured and fetus was palpated in breech position. The lower extremities were delivered, body and upper extremities. Pressure was applied at the maxilla to accommodate delivery of the head. The cord was clamped x 2, cut and handed off to awaiting sales marketing staff. Cord gasses were collected. Twin B placenta was delivered intact. Twin A placenta was delivered intact. 20 units of IV Pitocin was added to LR fluids. The uterus was cleaned of all clots. The uterus was exteriorized and repaired with 0-Vicryl in multiple interrupted stitches in two layers. An imbricating layer of the same suture was used. Tissell, fibrin sealant, was applied to the hysterotomy. The rectus muscle was re-approximated with 2-0Vicryl. Fascia was closed with 0 Vicryl. The Subcutaneous layer reapproximated with 2-0 Vicryl. The skin was then closed with 4-0 Vicryl. Methergine 0.2mg IM was administered due to uterine atony and hemorrhage. The patient tolerated the procedure well. All counts were correct x 3. Urine was noted to be clear at close of case. I was present and scrubbed for the entire procedure. The patient was taken to the recovery room in stable condition. Transfusion of two units packed red blood cells was initiated in recovery.
[2018-05-26] MEDS: DILAUDID IV PRN ×2 (03:53→04:03)
--- NOTE | 2018-05-26 03:59 | Procedure Note ---
OB Delivery Note - Delivery Date of Delivery: 05/26/18 Surgeon: DAYNA STEIN Estimated blood loss: <100cc - Vaginal Intrapartum events: labor-<37 weeks, PROM->1hr before delivery Delivery monitor: external FHT Route of delivery: Delivery placenta: other (Placenta of Twin A was removed in the operating room) Episiotomy: none Delivery laceration: none Anesthesia: local Delivery comments: Double-set up for dichorionic-diamoniotic twins with unstable lie of twin B was anticipated in the operating room but both OR rooms were occupied. Presentation of Twin A and B were confirmed vertex. NICU was present in 2003 with isolette 's for both twins. Mother pushed and Twin A delivered cephalic with 2 maternal pushes. Twin A was suctioned with delayed cord clamping. Twin A was noted to cry. Cord was clamped and infant handed off to awaiting NICU staff. Cord gasses were collected. Cord blood was collected. Ultrasound was done and Twin B was noted to be shoulder presentation therefore decision was made to proceed to primary section of Twin B. - Infant A at 1 minute: 8 at 5 minutes: 9 (960g) Gender: Female (950g 2lb 2oz)
[2018-05-26] MEDS ORDERED: SODIUM CHLORIDE FLUSH SYRINGE 10 ML IV NR (04:00)
[2018-05-26] MEDS ORDERED: PITOCin/NS 20 UNIT/1000ML DRIP 20 UNITS/1,000 ML BAG IV SCH ×2 (04:00→07:00)
[2018-05-26] MEDS ORDERED: MORPHINE PCA 30MG/30ML IV SCH (04:00)
--- NOTE | 2018-05-26 05:04 | Ultrasound Report ---
FINAL REPORT EXAM: US OB LIMITED HISTORY: presentation-baby b COMPARISONS: 05/22/2018 FINDINGS: Limited transabdominal grayscale and M-mode 3rd trimester ultrasound Living twin . Baby A in cephalic presentation with recorded cardiac activity of 163 beats per minute. Baby B is shown in both cephalic presentation (during apparent delivery of baby A) and subsequently transverse lie with the torso and closest approximation to the internal cervical os during the examination. Recorded cardiac activity of baby B is 172 beats per minute. IMPRESSION: Living twin . Cephalic delivery of baby a is demonstrated during this exam. Baby B is shown in cephalic presentation (during delivery of baby A) and subsequently in transverse lie with the torso in closest approximation to the internal cervical os.
[2018-05-26] MEDS ORDERED: BICITRA PO ONE (06:12)
[2018-05-26] MEDS ORDERED: REGLAN IV ONE (06:12)
[2018-05-26] MEDS: ZOSYN/NS 3.375GM/50ML 3.375 GM/50 ML BAG IV SCH ×2 (09:15→17:00)
[2018-05-26] MEDS: FEOSOL PO SCH ×2 (11:45→23:14)
[2018-05-26] MEDS: PRENATAL VITAMIN PO SCH (11:47)
[2018-05-26] MEDS: PERCOCET 5/325 PO PRN ×2 (13:30→18:40)
[2018-05-26] MEDS ORDERED: PERCOCET 5/325 PO ONE (23:04)
[2018-05-26] MEDS: MILK OF MAGNESIA PO PRN (23:16)
[2018-05-27] MEDS ORDERED: PERCOCET 5/325 PO PRN (00:01)
[2018-05-27] MEDS: PERCOCET 5/325 PO PRN ×7 (00:23→21:29)
[2018-05-27] MEDS ORDERED: POLYCILLIN/NS 2 GM/100 ML 2 GM/100 ML BAG IV SCH ×2 (01:00)
[2018-05-27] MEDS ORDERED: MORPHINE IV PRN (01:27)
--- NOTE | 2018-05-27 01:43 | Event Note ---
Date: 05/27/18 Was notified by nurse of maternal temperature elevation of 101.6 degrees orally. CBC, urinalysis, urine C&S ordered. Ampicillin and Gentamicin ordered IV. Examined patient. Patient is well appearing, alert, oriented, NAD. Abdomen soft, nontender, not distended. Respirations unlabored, normal rate. Fundus firm and midline. Dressing clean, dry, and intact. Patient reports Percocet is not relieving her incision pain. Patient cannot take NSAID due to aspirin allergy (pt. reports she has dizziness when she takes ASA). Morphine ordered for pain per recommendation of Dr. Victor. Consulted with Dr. Victor re: patient 's complaints and temperature elevation of 101.6. Patient refused IV antibiotics and labs. Advised patient why these are needed and risks of not taking them. Patient refused all labs and IV antibiotics. She did agree to IV pain medication.
[2018-05-27] MEDS ORDERED: GARAMYCIN IV SCH (02:00)
[2018-05-27] MEDS ORDERED: NACL 0.9% IV SCH (02:00)
--- NOTE | 2018-05-27 02:43 | Event Note ---
Date: 05/27/18 Notified by nurse that patient refused IV Morphine. Percocet re-ordered since pt. refuses IV medication. Pt. still refuses IV antibiotics and labs. Pulse 134 bpm, on repeat [address] Victor re: patient's abnormal vital signs/ tachycardia and her refusal of IV pain meds, IV antibiotics, and labs. Patient has small amount of lochia and her fundus is firm. Her dressing remains clean and dry.
[2018-05-27] MEDS: ZITHROMAX PO SCH (10:43)
[2018-05-27] MEDS: MILK OF MAGNESIA PO PRN ×2 (12:39→12:42)
[2018-05-27] MEDS: PRENATAL VITAMIN PO SCH (12:46)
[2018-05-27] MEDS: FEOSOL PO SCH ×3 (12:46→21:32)
--- NOTE | 2018-05-27 15:05 | Progress Note ---
Assessment and Plan day 1 S/P and LTCS twins. Anemia. P: Supplement with iron. Encouraged ambulation. Subjective - Subjective Date of service: 05/27/18 Principal diagnosis: /postop day 1 S/P vaginal delivery and section Interval history: /postop day 1 S/P and LTCS. Patient is doing well. Patient had temperature elevation overnight but refused labs, IV antibiotics, IV pain medication. Patient reports small amount of lochia. She is voiding without difficulty, passing gas, ambulating well, and tolerating a regular diet. Patient denies headache, cough, shortness of breath, chest pain, abdominal pain , leg pain, nausea or vomiting, swelling, or heavy bleeding. Patient reports: appetite normal, voiding normally, pain well controlled, flatus , ambulating normally : doing well Objective - Vital Signs Latest vital signs: Vital Signs Temp Pulse Resp BP BP Pulse Ox 05/27/18 08:25 119 H 05/27/18 08:20 99 F 120 H 20 112/86 05/27/18 04:32 22 05/27/18 03:29 99.5 F 118 H 05/27/18 00:20 124 H 05/27/18 00:15 101.6 F H 134 H 22 115/71 100 05/26/18 23:16 20 05/26/18 18:40 20 05/26/18 15:22 98.9 F 116 H 20 118/70 96 Intake and Output 05/26/18 05/27/18 05/27/18 23:59 07:59 15:59 Intake Total 240 240 Output Total 500 800 Balance -260 -800 240 Intake: Oral 240 240 Output: Urine 500 800 Indwelling Catheter 500 Void 800 Other: Total, Intake Amount 240 240 Total, Output Amount 500 800 # Voids Void 2 - Exam Cardiovascular: Present: Regular rate, Normal S1, Normal S2 Lungs: Present: Clear to auscultation Abdomen: Present: normal appearance, soft. Absent: distention, tenderness, guarding, rigidity Uterus: Present: normal, firm, fundal height below umbilicus. Absent: bogginess , tenderness Extremities: Present: normal. Absent: tenderness, edema Incision: Present: normal. Absent: erythematous
[2018-05-28] MEDS: PERCOCET 5/325 PO PRN ×4 (01:29→19:48)
[2018-05-28] MEDS: FEOSOL PO SCH ×3 (08:00→19:45)
--- NOTE | 2018-05-28 10:41 | Progress Note ---
Assessment and Plan A: /postop day 2. Anemia. P: Encouraged ambulation. Continue iron supplementation. Subjective - Subjective Date of service: 05/28/18 Principal diagnosis: /postop day 2 S/P vaginal delivery and section twins Interval history: /postop day 2 S/P and LTCS twin gestation. Patient is doing well and states she is feeling much better. Patient reports small amount of lochia. She is voiding without difficulty, passing gas, ambulating well, and tolerating a regular diet. Patient denies headache, cough, shortness of breath, chest pain, abdominal pain , leg pain, nausea or vomiting, swelling, or heavy bleeding. Patient states her pain is now well controlled. Patient reports: appetite normal, voiding normally, pain well controlled, flatus , ambulating normally : doing well, in NICU Objective - Vital Signs Latest vital signs: Vital Signs Temp Pulse Resp BP 05/28/18 06:02 20 05/28/18 01:29 20 05/28/18 00:00 97.7 F 94 H 20 117/76 05/27/18 21:29 22 05/27/18 17:20 97.2 F L 76 20 105/78 05/27/18 17:15 98.4 F 20 L 20 105/78 Intake and Output 05/27/18 05/28/18 05/28/18 23:59 07:59 15:59 Intake Total 360 Output Total 900 Balance -540 Intake: Oral 360 Output: Urine 900 Void 900 Other: Total, Intake Amount 240 Total, Output Amount 900 # Voids Void 1 - Exam Cardiovascular: Present: Regular rate, Normal S1, Normal S2 Lungs: Present: Clear to auscultation Abdomen: Present: normal appearance, soft, normal bowel sounds. Absent: distention, tenderness, guarding, rigidity Uterus: Present: normal, firm, fundal height below umbilicus. Absent: bogginess , tenderness Extremities: Present: normal. Absent: tenderness, edema Incision: Present: normal, dry, intact
[2018-05-28] MEDS: MOTRIN PO PRN (11:27)
[2018-05-28] MEDS: PRENATAL VITAMIN PO SCH (11:28)
[2018-05-29] MEDS: PERCOCET 5/325 PO PRN ×3 (00:36→10:45)
--- NOTE | 2018-05-29 09:01 | Event Note ---
notes indicate patient's csection was low transverse which it was not. She in fact had a classical section and was instructed that she should no longer labor for future deliveries and would require a repeat section.
[2018-05-29] MEDS: FEOSOL PO SCH (10:08)
[2018-05-29] MEDS: PRENATAL VITAMIN PO SCH (10:11)
--- NOTE | 2018-05-29 10:39 | Progress Note ---
Assessment and Plan - Patient Problems (1) Status post normal vaginal delivery Current Visit: Yes Status: Acute Plan to address problem: s/p of twin A PPD 3 - stable Discharge to home today (2) History of section, classical Current Visit: Yes Status: Acute Plan to address problem: s/p Classical Section of twin B POD 3 - stable Discharge to home today Follow up at [facility] in 1 week for incision check (3) Anemia in puerperium, baby delivered during current episode of care Current Visit: Yes Status: Acute Plan to address problem: Asymptomatic Continue iron therapy (4) Gestational diabetes Current Visit: Yes Status: Acute Qualifiers: Trimester: second trimester Plan to address problem: Diet-controlled Last blood glucose on 05/25/18 was 113. Subjective - Subjective Date of service: 05/29/18 Principal diagnosis: /postop Day #3, S/P & and Classical C/S of twins Patient reports: appetite normal, voiding normally, pain well controlled, flatus , ambulating normally, no dizzy ambulation [place]: in NICU Objective - Vital Signs Latest vital signs: Vital Signs Temp Pulse Resp BP 05/29/18 08:03 98.2 F 82 20 124/74 05/29/18 06:35 18 05/29/18 03:35 77 118/63 05/29/18 00:36 18 05/29/18 00:20 97.7 F 85 18 131/83 05/28/18 19:48 18 05/28/18 17:00 98 F 80 20 127/82 Intake and Output 05/28/18 05/29/18 05/29/18 23:59 07:59 15:59 Intake Total 560 300 120 Balance 560 300 120 Intake: Oral 560 120 Intake, Free Water 300 Other: Total, Intake Amount 200 120 # Voids Void 1 1 1 - Exam Abdomen: Present: normal appearance, soft Vulva: both: normal Uterus: Present: normal, firm, fundal height below umbilicus Extremities: Present: normal Incision: Present: normal, dry, intact
[2018-05-29] MEDS: MOTRIN PO PRN (10:45)
--- NOTE | 2018-05-29 10:48 | Discharge Summary ---
Providers - Providers Date of Admission: 05/16/18 12:43 Date of discharge: 05/29/18 Attending physician: SAVANA CONWAY 05/16/18 13:21 Consult to Physician [CONS] Routine Comment: Consulting Provider: NASIM SANDERS I Physician Instructions: Reason For Exam: 27 weeks with Di Di twins and PROM 05/16/18 17:16 Consult to Physician [CONS] Routine Comment: [phone] Consulting Provider: BRIAN NÚÑEZ Physician Instructions: SPOKED TO PT Reason For Exam: 27 week twins with PPROM Primary care physician: MARIAM KHAN MD Hospitalization Reason for admission: active labor, IUP - Delivery: , Procedure: vertical Episiotomy: none Laceration: none Incision: normal, dry, intact complications: none Discharge diagnosis: delivery [place] baby: twins Hospital course: Complicated by PPROM Condition at discharge: Stable Disposition: DC-01 TO HOME OR SELFCARE - Discharge Diagnoses (1) Status post normal vaginal delivery Status: Acute Comment: Twin A (2) History of section, classical Status: Acute Comment: Twin B (3) Anemia in puerperium, baby delivered during current episode of care Status: Acute Comment: Asymptomatic Continue iron therapy (4) Gestational diabetes Status: Acute Qualifiers: Trimester: second trimester Plan - Discharge Medications Prescriptions: Ferrous Sulfate [Feosol 325 MG tab] 325 mg PO BID 30 Days #60 tablet Ibuprofen 800 mg PO Q6H 10 Days #30 tablet MDD 3200mg oxyCODONE /ACETAMINOPHEN [Percocet 5/325] 1 tab PO Q4HR PRN 14 Days #30 tab PRN Reason: Pain, Moderate (4-6) - Provider Discharge Summary Activity: routine, no sex for 6 weeks, no heavy lifting 4 weeks, no strenuous exercise Diet: routine Instructions: routine Additional instructions: [] Smoking cessation referral if applicable(refer to patient education folder for contact #) [] Refer to [facility] Booklet Call your doctor immediately for: * Fever > 100.5 * Heavy vaginal bleeding ( >1 pad per hour) * Severe persistent headache * Shortness of breath * Reddened, hot, painful area to leg or breast * Drainage or odor from incision. * Keep incision clean and dry at all times and follow doctor's instructions regarding bathing/showering - Follow up plan Follow up: MARIAM KHAN MD [Primary Care Provider] - 7 Days (Follow up at [facility] in 1 week for incision check)
[2018-05-29 14:22] VITALS: BP 118/82
== END 2018-05-29 15:00 | disposition home or self-care (01) | DRG 765 ==
LOC: TRG 12:24 → LD 12:43 → OB 05-26 05:45
PROVIDERS: ADMIT Obstetrics & Gynecology Gynecology; ATTEND Obstetrics & Gynecology Gynecology
PROC: 10D00Z0 Extraction of Products of Conception, High, Open Approach (ICD-10-PCS; principal; 2018-05-26)
PROC: 10E0XZZ Delivery of Products of Conception, External Approach (ICD-10-PCS; 2018-05-26)
PROC: 30233N1 Transfusion of Nonautologous Red Blood Cells into Peripheral Vein, Percutaneous Approach (ICD-10-PCS; 2018-05-26)
DX: O30.043 Twin pregnancy, dichorionic/diamniotic, third trimester (principal); O60.14X2 Preterm labor third trimester with preterm delivery third trimester, fetus 2; O60.14X1 Preterm labor third trimester with preterm delivery third trimester, fetus 1; Z37.2 Twins, both liveborn; O32.1XX2 Maternal care for breech presentation, fetus 2; Z3A.28 28 weeks gestation of pregnancy; O32.0XX2 Maternal care for unstable lie, fetus 2; O41.03X1 Oligohydramnios, third trimester, fetus 1; O72.1 Other immediate postpartum hemorrhage; Z88.6 Allergy status to analgesic agent; O36.5931 Maternal care for other known or suspected poor fetal growth, third trimester, fetus 1; D50.9 Iron deficiency anemia, unspecified; O40.3XX1 Polyhydramnios, third trimester, fetus 1; O90.81 Anemia of the puerperium; O42.913 Preterm premature rupture of membranes, unspecified as to length of time between rupture and onset of labor, third trimester
CPT/HCPCS: 36415; 76815; 76816; 76819; 76820; 80048; 82803; 82962; 83036; 83735; 85007; 85025; 86850; 86900; 86901; 86920; 88307; 99211; A6250; C9250; G0463; J0290; J0330; J0595; J0690; J0702; J1170; J1580; J2210; J2270; J2370; J2543; J2590; J2704; J2765; J3010; J3475; J7040; J7120; J7121; P9016; P9047